=== PATIENT | male | born 2000 | race Two or more races ===

== ENCOUNTER 2020-10-01 16:24 | Outpatient (REF) | payer SELFPAY | END 2020-10-01 16:25 | disposition home or self-care (01) | LOC: HO.LAB 16:24 | PROVIDERS: Visit Provider Internal Medicine | DX: Z20.828 Contact with and (suspected) exposure to other viral communicable diseases (principal) | CPT/HCPCS: C9803; U0003 ==

== ENCOUNTER 2021-02-05 05:50 | Emergency (ER) | payer SELFPAY ==
[2021-02-05 06:03] VITALS: BP 121/64; PULSE 58; RESP 14; TEMP 36.6; O2SAT 97; BMI 20.5
--- NOTE | 2021-02-05 07:24 | ED.ALLEREA ---
HPI - Allergic Reaction General Chief complaint: Allergic Reaction Stated complaint: Hives Time Seen by Provider: 02/05/21 07:24 Source: patient Mode of arrival: ambulatory Limitations: no limitations History of Present Illness HPI narrative: HIves to arms and back. Improved this has been occuring for a month. complaint: hives Onset (ago): month(s) Symptoms: itching Severity: mild Treatment prior to arrival: none Previous Allergic Reaction History: prior ED visit(s) Related Data Previous Rx's Medication Instructions Recorded cetirizine [Zyrtec] 10 mg PO DAILY #30 cap 02/05/21 Allergies Allergy/AdvReac Type Severity Reaction Status Date / Time No Known Allergies Allergy Verified 02/05/21 07:30 Review of Systems Constitutional: Constitutional: Reports no additional constitutional complaints Eyes: Eyes: Reports no additional eye complaints ENT: Denies dizziness Cardiovascular: Cardiovascular: Reports no additional cardiovascular complaints Respiratory: Respiratory: Reports as per HPI Gastrointestinal: Gastrointestinal: Reports no additional gastrointestinal complaints Musculoskeletal: Musculoskeletal: Reports no additional musculoskeletal complaints Integumentary/Breasts: Skin/Breast: Denies rash Neurologic: Reports system reviewed and no additional complaints, except as documented, Denies dizziness and Denies Sensory deficit (Neuro) Psychiatric: Psychiatric: Denies anxiety [facility] Past Medical History Medical History Asthma Social History Social History Advance Directives: No Physical Exam Vital Signs: Vital Signs: Last Vital Signs Temp 98 F 02/05/21 06:03 Pulse 58 02/05/21 06:03 Resp 14 02/05/21 06:03 BP 121/64 02/05/21 06:03 Pulse Ox 97 02/05/21 06:03 Body Mass Index 20.5 Const: General: healthy appearing Nutritional Appearance: average body habitus Orientation/consciousness: oriented to person and patient oriented x3 Limitations: no limitations HENMT: Head: Yes normal to inspection Ears: external ears normal General nose exam: Normal external nose present Mouth: Normal oral and palatal mucosa present and oropharynx normal Throat: Yes posterior oropharynx normal Eyes: General: appearance normal, both eyes and all related structures Neck: Other: supple Neck: Yes normal visual inspection Chest: Chest palpation & inspection: normal inspection of the chest Resp: Auscultation: clear to auscultation bilaterally Cardio: Jugular venous distension: no JVD Rate: regular rate Rhythm: regular rhythm Heart sounds: S1 normal heart sound present and S2 normal heart sound present GI: Inspection: Yes normal to inspection Palpation (GI): Soft to palpation, nontender and No hepatosplenomegaly present Auscultation: normal bowel sounds : General: Yes no CVA tenderness Back/Spine/Pelvis: Back: no CVA tenderness Skin: Other: slight hives to arms and abdomen Neuro: General: oriented to person and patient oriented x3 Cranial nerves: Yes CN's II-XII intact bilaterally Motor exam (neuro): 5/5 motor strength present throughout Sensory Exam: No Sensory deficit (Neuro) Extrem: General: Yes normal to inspection Psych: Appearance: grossly normal Course Course Course Narrative: NO evidence of acute allergic reaction will start zyrtec and dc home with follow up MDM - Allergic Reaction Differential Diagnosis Differential diagnosis: Likely allergic reaction Discharge Plan Discharge Clinical Impression: Urticaria Allergic reaction Qualifiers: Encounter type: initial encounter Qualified Code(s): T78.40XA - Allergy, unspecified, initial encounter Patient Disposition: Home, Self-Care Instructions: Urticaria (ED) Prescriptions: New Zyrtec 10 mg capsule 10 mg PO DAILY Qty: 30 RF: 0 Referrals: Physician,None [Primary Care Provider] - 2 days
== END 2021-02-05 08:16 | disposition home or self-care (01) ==
PROVIDERS: Emergency Provider Emergency Medicine
DX: L50.0 Allergic urticaria (principal); Z79.899 Other long term (current) drug therapy
CPT/HCPCS: 99283

== ENCOUNTER 2021-02-09 21:11 | Emergency (ER) | payer OTHER, SELFPAY ==
[2021-02-09 21:20] VITALS: BP 112/65; PULSE 71; RESP 16; TEMP 37.3; O2SAT 98; BMI 20.5
--- NOTE | 2021-02-09 21:55 | ED.ALLEREA ---
HPI - Allergic Reaction General Chief complaint: Allergic Reaction Stated complaint: HIVES Time Seen by Provider: 02/09/21 21:49 Source: patient Mode of arrival: ambulatory Limitations: no limitations History of Present Illness HPI narrative: Patient comes to emergency room complaining of hives. Patient states for the last month, he has been having intermittent has. Patient states he has this episodes 5 of 7 days per week. They are very itchy. The hives are present in the face, abdomen and chest, back, upper and lower extremities bilaterally. Patient was seen here on February 05 with the same symptoms, prescribed Zyrtec. Patient states that he is compliant with his medication but he still having highs despite being and Zyrtec. Patient states that there is nothing new that might explain the hives, denies any new foods, no new medications or supplements, no new clothes or detergents. Patient denies feeling that his throat is closing, no shortness of breath, no chest pain. This episode started 30 minutes prior to arrival MD complaint: hives Related Data Previous Rx's Medication Instructions Recorded cetirizine [Zyrtec] 10 mg PO DAILY #30 cap 02/05/21 famotidine [Pepcid] 40 mg PO DAILY #4 tab 02/09/21 prednisone 50 mg PO DAILY #4 tab 02/09/21 Allergies Allergy/AdvReac Type Severity Reaction Status Date / Time No Known Allergies Allergy Verified 02/09/21 21:19 Review of Systems Review of Systems: Constitutional : No Weight loss, No Fever, No Chills, No Night Sweats, No Fatigue, No Malaise ENT/Mouth : No Hearing loss, No Ear Pain, No Nasal Congestion, No Sinus Pain, No Hoarseness, No sore throat, No Rhinorrhea, No Swallowing Difficulty Eyes: No Eye Pain, No Swelling, No Redness, No Foreign Body, No Discharge, No Vision Changes Cardiovascular : No Chest Pain, No SOB, No Dyspnea on Exertion, No Orthopnea, No Edema, No Palpitations Respiratory : No Cough, No Sputum, No Wheezing, No Smoke Exposure, No Dyspnea Gastrointestinal : No Nausea, No Vomiting, No Diarrhea, No Constipation, No abdominal Pain, No Hematochezia, No Melena Genitourinary : no irregular bleeding, No Dysuria, No Urinary Frequency, No Hematuria, No Urinary Incontinence, No Urgency, No Flank Pain, No Urinary Flow Changes, No Hesitancy Musculoskeletal : No joint pain, No Myalgias, No Joint Swelling Skin : Complaining of hives Neuro : No Weakness, No Numbness, No Paresthesias, No Loss of Consciousness, No Dizziness, No Headache Psych : No Anxiety/Panic, No Depression, No SI/HI/AH/VH, No Social Issues, Heme/Lymph: No Bruising, No Bleeding,No Lymphadenopathy Endocrine : No Polyuria, No Polydipsia, No Temperature Intolerance [facility] Past Medical History Medical History Asthma Social History Social History Advance Directives: No Advance Directives Information Provided: Yes Physical Exam Vital Signs: Vital Signs: Last Vital Signs Temp 99.2 F 02/09/21 21:20 Pulse 71 02/09/21 21:20 Resp 16 02/09/21 21:20 BP 112/65 02/09/21 21:20 Pulse Ox 98 02/09/21 21:20 Body Mass Index 20.5 Appearance: Alert. Oriented X3. No acute distress. Eyes: Pupils equal, round and reactive to light. ENT: Pharynx normal. Neck: Normal inspection. Neck supple. No lymph nodes noted. No crepitus CVS: Normal heart rate and rhythm. Pulses normal. Normal S1 and S2 Respiratory: No respiratory distress. Breath sounds normal. No Wheezing. No rales Abdomen: Soft and nontender. No rigidity. No distention. good BS x4 Skin: Hives and chest, abdomen, back, upper and lower extremities Extremities: No lower extremity edema. No Lacerations. No Rash Neuro: Oriented X 3. No motor deficit. No sensory deficit. Moving all extermities. No slurred speech. Course Course Course Narrative: After IV treatment, the hives completely resolved. I discussed with the patient that he needs to be referred to an construction person for a skin scratch test to find out if he is allergic to. At this time, patient is asymptomatic. Discharge Plan Discharge Clinical Impression: Urticaria Patient Disposition: Home, Self-Care Instructions: Urticaria (ED) Additional Instructions: Continue taking Zyrtec. Please follow-up with her primary care physician as she may need to be referred to an construction person for a skin scratch test. If you have any worsening or new symptoms, please return to the emergency room or call 911 Prescriptions: New prednisone 50 mg tablet 50 mg PO DAILY Qty: 4 RF: 0 famotidine [Pepcid] 40 mg tablet 40 mg PO DAILY Qty: 4 RF: 0 No Action Zyrtec 10 mg capsule 10 mg PO DAILY Qty: 30 RF: 0
[2021-02-09] MEDS: methylPREDNISolone Sod Succ 125 MG/2 ML VIAL IVPUSH (22:23)
[2021-02-09] MEDS: diphenhydrAMINE HCL 50 MG/ML VIAL IVPUSH (22:23)
[2021-02-09] MEDS: Famotidine/PF 20 MG/2 ML VIAL IVPUSH (22:23)
== END 2021-02-09 23:20 | disposition home or self-care (01) ==
PROVIDERS: Emergency Provider Emergency Medicine
DX: L50.9 Urticaria, unspecified (principal)
CPT/HCPCS: 96374; 96375; 99283; 99284; J1200; J2930

== ENCOUNTER 2021-07-20 22:34 | Emergency (ER) | payer OTHER, SELFPAY ==
[2021-07-21 00:50] LABS: IDNOW Serial# 9DD0AD1C; Strep A Nucleic Acid Positive (Negative)
[2021-07-21 01:06] VITALS: BP 124/68; PULSE 54; RESP 18; TEMP 36.6; O2SAT 99; BMI 21.2
--- NOTE | 2021-07-21 04:13 | ED_ITS ---
HPI - General Adult General Chief complaint: General Medical Stated complaint: Sore throat/Headache Time Seen by Provider: 07/21/21 04:03 Source: patient Mode of arrival: ambulatory Limitations: no limitations History of Present Illness HPI narrative: 20-year-old male who presents emergency department for evaluation of sore throat and flu-like illness for approximately 1 week. Patient states that he has a sore throat which is constant, the pain is a sharp pain which is worse with swallowing. He has also had rhinorrhea. He denied cough, chest pain, shortness of breath or dyspnea on exertion. He denied fever or chills. He denied myalgias or arthralgias. Patient states that he had a COVID-19 infection in September of 2020. He has not been vaccinated for COVID-19. He was seen at an urgent care clinic today and states that he had a negative COVID-19 test. Related Data Previous Rx's Medication Instructions Recorded cetirizine 10 mg capsule (Zyrtec) 10 mg PO DAILY #30 cap 02/05/21 famotidine 40 mg tablet (Pepcid) 40 mg PO DAILY #4 tab 02/09/21 prednisone 50 mg tablet 50 mg PO DAILY #4 tab 02/09/21 penicillin V potassium 500 mg 500 mg PO TID 10 Days #30 tab 07/21/21 tablet Allergies Allergy/AdvReac Type Severity Reaction Status Date / Time No Known Allergies Allergy Verified 02/09/21 21:19 Review of Systems Review of Systems: Yes all other systems are reviewed and are negative ON LICENSE OF [facility] Past Medical History ON LICENSE OF [facility] Narrative: Past medical history: Asthma, COVID-19 infection in September 2020. Past surgical history: None. Social history: The patient denies tobacco, alcohol and drug use. Medical History Asthma Social History Social History Advance Directives: No Physical Exam Vital Signs: Vital Signs: Last Vital Signs Temp 97.8 F 07/21/21 01:06 Pulse 54 07/21/21 01:06 Resp 18 07/21/21 01:06 BP 124/68 07/21/21 01:06 Pulse Ox 99 07/21/21 01:06 Body Mass Index 21.2 Const: General: cooperative and no acute distress Orientation/conscious ness: oriented to person and oriented to place Limitations: no limitations HENMT: Head: Yes normal to inspection, Yes normocephalic and Yes atraumatic Ears: external ears normal General nose exam: Normal external nose present Face and sinus: Yes normal facial exam Mouth: Normal oral and palatal mucosa present Throat: Yes tonsils normal, Yes uvula midline and Yes posterior oropharynx abnormal (Bilateral erythema with exudate) Eyes: General: appearance normal, both eyes and all related structures Pup ils: Equal, round and reactive pupils present Neck: Neck: Yes normal visual inspection, Yes no lymphadenopathy, Yes trachea midline and Yes supple Chest: Chest palpation & inspection: normal inspection of the chest and normal palpation of entire chest wall Resp: Effort & Inspection: normal respiratory effort and able to speak in complete sentences Auscultation: clear to auscultation bilaterally Cardio: Rate: regular rate Rhythm: regular rhythm Heart sounds: S1 normal heart sound present, S2 normal heart sound present and no murmurs GI: Inspection: Yes normal to inspection Palpation (GI): Soft to palpation, nontender and no guarding Auscultation: normal bowel sounds : General: Yes no CVA tenderness Back/Spine/Pelvis: Back: no CVA tenderness Skin: General skin exam: no rashes or lesions noted Neuro: General: oriented to person and oriented to place Cranial nerves: Yes CN's II-XII intact bilaterally and Yes Equal, round and reactive pupils present Cognition (Neuro): normal cognition Motor exam (neuro): 5/5 motor strength present throughout Extrem: General: Yes normal to inspection Psych: Appearance: grossly normal Speech and movement: Normal speech and movement present Affect: normal affect Attitude: cooperative Thought process: Normal thought process present Thought content: Normal thought content present Course Course Course Narrative: 20-year-old male who presents to the emergency department for evaluation of sore throat x1 week. Vital signs were normal. Throat exam did reveal posterior erythema with exudates. Patient's rapid strep test was positive. Patient was given penicillin 500 mg orally and ibuprofen 600 mg orally for his pain. He was started on penicillin 500 mg 3 times a day for 10 days. He was discharged home with verbal and printed instructions advised return to the emergency department if his symptoms get worse or if he develops any new symptoms that were concerning to him. Medical Decision Making Lab Data Labs: Lab Results 07/21/21 07/21/21 Range/Units 00:34 00:34 COVID-19 (JORGE) Cancelled COVID-19 Clin Com Cancelled S. pyogenes GrpA DAISY Positive A (Negative) Discharge Plan Discharge Clinical Impression: Acute streptococcal pharyngitis Patient Disposition: Home, Self-Care Instructions: Strep Throat (ED) Additional Instructions: Your rapid strep throat test was positive for strep throat. Take penicillin 500 mg pills, 1 pill 3 times a day (every 6 hours while you are awake) for 10 days. It is important that you finish the 10 day course of this medication. Take ibuprofen 200 mg pills, 3 pills every 6 hours as needed for pain. Take Tylenol (acetaminophen) 500 mg pills, 2 pills every 4 to 6 hours as needed for pain. Follow-up with your doctor in 2 days. Please return to the emergency department if your symptoms get worse or if you develop any symptoms that are concerning to you. Prescriptions: New penicillin V potassium 500 mg tablet 500 mg PO TID 10 Days Qty: 30 RF: 0 No Action Zyrtec 10 mg capsule 10 mg PO DAILY Qty: 30 RF: 0 prednisone 50 mg tablet 50 mg PO DAILY Qty: 4 RF: 0 famotidine [Pepcid] 40 mg tablet 40 mg PO DAILY Qty: 4 RF: 0
[2021-07-21] MEDS: Ibuprofen 600 MG TABLET PO (04:37)
[2021-07-21] MEDS: Penicillin V Potassium 250 MG TABLET 500 MG PO (04:38)
== END 2021-07-21 04:37 | disposition home or self-care (01) ==
PROVIDERS: Emergency Provider Emergency Medicine Emergency Medical Services
DX: J02.0 Streptococcal pharyngitis (principal)
CPT/HCPCS: 36415; 87635; 87651; 99283

== ENCOUNTER 2022-07-13 21:38 | Emergency (ER) | payer OTHER, SELFPAY ==
--- NOTE | ~2022-07-13 | XR_ITS ---
EXAMINATION: 1. LEFT FOOT. 2. LEFT ANKLE. CLINICAL INFORMATION: Pain. Trauma. COMPARISON: None TECHNIQUE: 1. Left foot. 3 views 2. Left ankle. 3 views FINDINGS: 1. Left foot. No fracture. No dislocation. Bone and joint are normal. 2. Left ankle. No fracture. No dislocation. Ankle mortise is congruent. No soft tissue abnormality. XR/XR ankle LT 2V IMPRESSION: 1. Left foot. Normal left foot. 2. Left ankle. Normal left ankle.
--- NOTE | ~2022-07-13 | XR_ITS ---
EXAMINATION: 1. LEFT FOOT. 2. LEFT ANKLE. CLINICAL INFORMATION: Pain. Trauma. COMPARISON: None TECHNIQUE: 1. Left foot. 3 views 2. Left ankle. 3 views FINDINGS: 1. Left foot. No fracture. No dislocation. Bone and joint are normal. 2. Left ankle. No fracture. No dislocation. Ankle mortise is congruent. No soft tissue abnormality. XR/XR foot LT 2V IMPRESSION: 1. Left foot. Normal left foot. 2. Left ankle. Normal left ankle.
[2022-07-13 22:00] VITALS: BP 129/76; PULSE 76; RESP 16; TEMP 36.7; O2SAT 96; BMI 24.0
[2022-07-13] MEDS: Ibuprofen 600 MG TABLET PO (22:05)
--- NOTE | 2022-07-14 00:16 | ED.LOWEXIN ---
HPI - Extremity Injury (Lower) General Chief Complaint: Extremity Injury, Lower Stated Complaint: L ankle sprain at work Time Seen by Provider: 07/13/22 23:31 Source: patient Limitations: no limitations History of Present Illness HPI Narrative: Patient presents emergency department for evaluation of left ankle pain. 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 Has pain to the left lateral ankle and midfoot with localized swelling. Pain is made worse with ambulation and weight-bearing. Denies numbness or tingling to the foot. Denies any prior injury to this foot. Related Data Previous Rx's Medication Instructions Recorded cetirizine 10 mg capsule (Zyrtec) 10 mg PO DAILY #30 caps 02/05/21 famotidine 40 mg tablet (Pepcid) 40 mg PO DAILY #4 tabs 02/09/21 prednisone 50 mg tablet 50 mg PO DAILY #4 tabs 02/09/21 penicillin V potassium 500 mg 500 mg PO TID 10 days #30 tabs 07/21/21 tablet Allergies Allergy/AdvReac Type Severity Reaction Status Date / Time shrimp Allergy Anaphylaxis Verified 07/13/22 22:00 Review of Systems Review of Systems: Musculoskeletal: Positive left ankle and foot pain as noted in HPI Yes all other systems are reviewed and are negative [facility] Past Medical History Attestation statement: The following information was validated with the patient. Source: old records reviewed Medical History Asthma Social History Social History Advance Directives: No Advance Directives Information Provided: Yes Physical Exam Vital Signs: Vital Signs: Last Vital Signs Temp 98.0 F 07/13/22 22:00 Pulse 76 07/13/22 22:00 Resp 16 07/13/22 22:00 BP 129/76 07/13/22 22:00 Pulse Ox 96 07/13/22 22:00 O2 Del Method 07/13/22 22:00 BMI result Body Mass Index 24.0 Vital signs have been reviewed as normal and appeared to be correct. Blood pressure normal.? Heart rate normal.? Respiration rate normal. Temperature normal.? Oxygen saturation normal. Appearance: Alert.?Oriented to person, place and time. No acute distress.?Normal affect. Eyes: Pupils equal, round and reactive to light.? ENT: Pharynx normal.?? Neck: Normal inspection.? Neck supple.?? CVS: Heart sounds normal. Normal heart rate and rhythm.? Pulses normal.?? Respiratory: No respiratory distress.? Lung sounds clear to auscultation bilaterally?? Abdomen: Soft and non-tender. Normoactive bowel sounds. ?? Skin: Skin warm and dry.? Normal skin color.? Extremities: No lower extremity edema.? Left lateral malleolus swelling, tenderness upon palpation to the lateral midfoot and malleolus. 2+ DP/PT pulse bilaterally. Sensation is intact. No obvious deformity Neuro: Moves all extremities spontaneously. Sensation intact bilaterally. CN II-XII intact. No focal neuro deficits. Ambulates with normal steady gait. Course Course Course Narrative: Patient is a 21-year-old male with no significant past medical history presents emergency department for evaluation of traumatic left ankle/foot pain. XR obtained reveals no acute fracture dislocation to the ankle or foot. Lateral malleolus swelling with point tenderness upon palpation. Neurovascularly intact distally. Physical exam consistent with a sprain of the ankle. Discussed good care for rest, ice, compression, elevation, acetaminophen/ibuprofen as needed for pain, crutches and weight-bearing as tolerated. Advised outpatient follow-up with primary care provider, alternatively may contact [facility], and speak with his boss as this was a work related injury regarding return to work. All questions were answered, patient was discharged home in stable condition. MDM - Extremity Injury (Lower) Medical Records Attestation: I reviewed the patient's medical records. Imaging Data XR ankle/foot: Radiologist's impression: XR/XR ankle LT 2V IMPRESSION: 1. Left foot. Normal left foot. 2. Left ankle. Normal left ankle.? Discharge Plan Discharge Clinical Impression: Ankle sprain Qualifiers: Encounter type: initial encounter Laterality: left Patient Disposition: Home, Self-Care Instructions: Ankle Sprain (ED), R.I.C.E. Treatment (ED) Additional Instructions: X-ray does not show any fracture or dislocation. Your pain is due to a sprain of the ankle. Be sure to rest, apply ice to the area for 10-15 minutes 3-4 times daily, use Filemon bandage for compression, elevate your leg at all times when possible. Use crutches while walking. You can take ibuprofen 200 mg, 3 tablets (600mg) every 6-8 hours as needed for pain, in addition to Tylenol 500 mg, 2 tablets (1,000mg) every 4-6 hours as needed for pain, but not to exceed 3 doses daily (3,000mg).? Ankle sprains can improve over a few days, but can take weeks to heal as well. Please contact your primary care provider to arrange for follow-up as needed, additional you will need to contact your job as injury occurred while working, and they may request follow-up at a certain facility before returning to work. Prescriptions: No Action Zyrtec 10 mg capsule 10 mg PO DAILY Qty: 30 0RF prednisone 50 mg tablet 50 mg PO DAILY Qty: 4 0RF famotidine [Pepcid] 40 mg tablet 40 mg PO DAILY Qty: 4 0RF penicillin V potassium 500 mg tablet 500 mg PO TID 10 Days Qty: 30 0RF Referrals: [facility] [Provider Group]
== END 2022-07-14 01:09 | disposition home or self-care (01) ==
PROVIDERS: Emergency Provider Emergency Medicine Emergency Medical Services
DX: S93.402A Sprain of unspecified ligament of left ankle, initial encounter (principal); M25.572 Pain in left ankle and joints of left foot; Y33.XXXA Other specified events, undetermined intent, initial encounter; Y93.89 Activity, other specified; Y92.9 Unspecified place or not applicable; Y99.0 Civilian activity done for income or pay; Z79.899 Other long term (current) drug therapy
CPT/HCPCS: 73600; 73620; 99283

== ENCOUNTER 2022-11-01 21:58 | Emergency (ER) | payer SELFPAY ==
[2022-11-01 22:07] VITALS: BP 123/79; PULSE 86; RESP 16; TEMP 36.6; O2SAT 96; BMI 21.6
[2022-11-01 22:36] LABS: IDNOW Serial# 55D5AD1C
[2022-11-01 22:37] LABS: COVID-19 Test Negative (Negative); IDNOW Serial# 6674DD1D; Influenza A Negative (Negative); Influenza B2 Negative (Negative)
[2022-11-01 22:38] LABS: IDNOW Serial# 08D9AD1C; Strep A Nucleic Acid Negative (Negative)
--- NOTE | 2022-11-01 22:56 | ED_ITS ---
HPI - General Adult General Chief complaint: Upper Respiratory Symptoms Stated complaint: swollen throat cant swallow Time Seen by Provider: 11/01/22 22:22 Source: patient Mode of arrival: ambulatory Limitations: no limitations History of Present Illness HPI narrative: 22-year-old male history of asthma presents with sore throat, dry cough, rhinorrhea since this morning. Patient tells me he is coming in because he is concerned he may have strep throat, he tells me he did the symptoms he had last time when he had strep throat, he tells me his throat is burning and hurts to swallow, and hurts to talk. Patient tells me the cough is dry, intermittent nature. Reports an intermittent runny nose. Denies fevers, chills, chest pain, shortness of breath, headache, vision changes, dizziness, ear pain, recent sick contacts. Related Data Previous Rx's Medication Instructions Recorded cetirizine 10 mg capsule (Zyrtec) 10 mg PO DAILY #30 caps 02/05/21 famotidine 40 mg tablet (Pepcid) 40 mg PO DAILY #4 tabs 02/09/21 prednisone 50 mg tablet 50 mg PO DAILY #4 tabs 02/09/21 penicillin V potassium 500 mg 500 mg PO TID 10 days #30 tabs 07/21/21 tablet Magic Mouthwash 5 ml PO TID #240 mL 11/01/22 Diphen/Lido/Antacid 1:1:1 240 mL suspension amoxicillin 500 mg capsule 500 mg PO BID 7 days #14 caps 11/01/22 Allergies Allergy/AdvReac Type Severity Reaction Status Date / Time shrimp Allergy Anaphylaxis Verified 07/13/22 22:00 Review of Systems Review of Systems: Constitutional : No Weight loss, No Fever, No Chills, No Fatigue, No Malaise ENT/Mouth : + sore throat, No Rhinorrhea, + Sneezing Eyes: No Eye Pain, No Swelling, No Redness Cardiovascular : No Chest Pain, No SOB, No Dyspnea on Exertion, No Orthopnea, No Edema, No Palpitations Respiratory : + Cough, No Sputum, No Wheezing Gastrointestinal : No Nausea, No Vomiting, No Diarrhea, No Constipation, No abdominal Pain, No Hematochezia, No Melena Genitourinary : No Dysuria, No Urinary Frequency, No Hematuria, Musculoskeletal : No joint pain, No Myalgias, No Joint Swelling Skin : No Skin Lesions, No rash Neuro : No Weakness, No Numbness, No Dizziness, No Headache Psych : No Anxiety/Panic, No Depression All other systems reviewed and are negative Yes all other systems are reviewed and are negative FOR[facility]LY [facility] Past Medical History Attestation statement: The following information was validated with the patient. Source: old records reviewed and nursing notes reviewed Medical History Asthma Social History Social History Advance Directives: No Advance Directives Information Provided: No Physical Exam ED Vital Signs: Vital Signs - 24 hr 11/01/22 22:07 Temperature 98 F Pulse Rate 86 Respiratory Rate 16 Blood Pressure 123/79 Pulse Oximetry 96 Oxygen Delivery Method Room Air BMI result Body Mass Index 21.6 vss Appearance: Alert.? Oriented X3.? No acute distress.? Patient speaking in full sentences controlling secretions well. Head: Normocephalic, atraumatic, no step-offs or deformities Eyes: Pupils equal, round and reactive to light.? ENT: Pharynx normal.? Uvula midline. No signs of abscess or exudates to the pharynx. No pain with manipulation of external ears bilaterally. No mastoid tenderness. Neck: Normal inspection.? Neck supple.? No palpable lymphadenopathy. CVS: Normal heart rate and rhythm.? Pulses normal.? Respiratory: No respiratory distress.? Breath sounds normal.? Abdomen: Soft and nontender.? Skin: Skin warm and dry.? Normal skin color.? Normal skin turgor.? Extremities: No lower extremity edema.? No calf ttp. 5/5 strength to bilateral upper and lower extremities Neuro: Oriented X 3.? No motor deficit.? No sensory deficit. CN 2-12 intact Course Reevaluation(s) Reevaluation #1: COVID, influenza, strep negative. Starr pending. Time: 23:00 Reevaluation #2: Starr negative. At this time patient will be discharged, patient tells me this feels exactly like the time they had strep throat, explained to him because symptoms came on today it is hard to know if this is strep throat or not, he is requesting antibiotics, amoxicillin sent to his pharmacy to cover for strep. Tells me last time he had it rapidly progressed therefore antibiotics will be sent. Educated patient on diagnosis and treatment plan, answered all question, patient verbalizes understanding. At this time patient will be discharged home, advised to return with new or worsening symptoms. Educated on worrisome signs and symptoms and when to return. At this time I feel comfortable discharge home. Time: 00:04 Medications Administered Discontinued Medications Generic Name Dose Route Start Last Admin Trade Name Grace PRN Reason Stop Dose Admin Amoxicillin 500 mg 11/01/22 23:52 11/01/22 23:59 Amoxicillin 500 Mg Capsule PO 11/01/22 23:53 500 mg ONCE ONE Administration Lidocaine HCl 15 ml 11/01/22 22:53 11/01/22 23:11 Lidocaine Hcl Viscous 2 % 15 Ml Solution MUCOUS MEM 11/01/22 22:54 15 ml ONCE ONE Administration Medical Decision Making Medical Decision Making [facility] Narrative: 2249 22-year-old male presents with sore throat, cough and sneezing since this morning. Main concern is sore throat. Tells me this feels like the time that he had strep. Physical exam with an erythematous posterior pharynx however no abscess or exudates. Patient well appearing, no signs of acute distress no signs of respiratory distress. Vital signs stable Likely viral in nature. Will rule out bacterial for pharyngitis, mononucleosis. I do not suspect peritonsillar abscess, epiglottitis. No signs of acute respiratory distress, PE ( PERC -) , pneumonia. Plan at this time viral testing. Differential Diagnosis Differential Diagnoses: The differential diagnosis associated with the prese ntation includes Likely viral in nature. Will rule out bacterial for pharyngitis, mononucleosis. I do not suspect peritonsillar abscess, epiglottitis. No signs of acute respiratory distress, PE ( PERC -) , pneumonia. Admission/Observation Consideration of admission/observation: Escalation of care including admission/observation considered Unlikely Lab Data [facility] Lab Attestation statement: I reviewed the patient's lab results. Labs: Lab Results 11/01/22 11/01/22 11/01/22 Range/Units 22:12 22:12 22:12 COVID-19 (JORGE) Negative (Negative) COVID-19 Clin Com See Note Monoscreen (Negative) Influenza Type A (DAISY) Negative (Negative) Influenza Type B (DAISY) Negative (Negative) Influenza A & B Note See Note S. pyogenes GrpA DAISY Negative (Negative) 11/01/22 Range/Units 23:10 COVID-19 (JORGE) (Negative) COVID-19 Clin Com Monoscreen Negative (Negative) Influenza Type A (DAISY) (Negative) Influenza Type B (DAISY) (Negative) Influenza A & B Note S. pyogenes GrpA DAISY (Negative) Core Measures AMI core measures followed: Yes Measure exclusions: not indicated Discharge Plan Discharge Clinical Impression: Pharyngitis Patient Disposition: Home, Self-Care Instructions: Pharyngitis (ED) Additional Instructions: Take your medications as prescribed. If you were prescribed antibiotics today, it is important that you take your medication to their entirety, do not skip any doses, do not finish them early. Follow-up with your primary care provider this week. Return to the emergency department with new or worsening symptoms. Such as fevers, chills, chest pain, shortness of breath, nausea, vomiting, dizziness, headache, vision changes, lethargy, inability to control secretions, worsening pain, changes in voice In case of emergency call 911 You tested negative for flu, COVID, strep. Prescriptions: New amoxicillin 500 mg capsule 500 mg PO BID 7 Days Qty: 14 0RF Magic Mouthwash Diphen/Lido/Antacid 1:1:1 240 mL suspension 5 ml PO TID Qty: 240 0RF Rx Instructions: Lidocaine Viscous 2 % 80mL; diphenhydramine 12.5 mg/5 mL 80mL; aluminum-mag hydrox-simeth [id number]/5mL 80mL Swish and spit, do not swallow No Action Zyrtec 10 mg capsule 10 mg PO DAILY Qty: 30 0RF prednisone 50 mg tablet 50 mg PO DAILY Qty: 4 0RF famotidine [Pepcid] 40 mg tablet 40 mg PO DAILY Qty: 4 0RF penicillin V potassium 500 mg tablet 500 mg PO TID 10 Days Qty: 30 0RF Referrals: Physician,None [Primary Care Provider] - 2 days Stand Alone Forms: Work/School Release Interventions: ED Discharge Assessment Last Done: 11/02/22 00:01 Discharge Date/Time: 11/02/22 00:01
[2022-11-01] MEDS: Lidocaine HCl Viscous 2 % 15 ML SOLUTION MUCOUS MEM (23:11)
[2022-11-01 23:35] LABS: Monotest Negative (Negative)
[2022-11-01] MEDS: Amoxicillin 500 MG CAPSULE PO (23:59)
== END 2022-11-02 00:01 | disposition home or self-care (01) ==
PROVIDERS: Physician Assistant; Emergency Provider Internal Medicine
DX: J02.9 Acute pharyngitis, unspecified (principal); Z20.822 Contact with and (suspected) exposure to COVID-19; J45.909 Unspecified asthma, uncomplicated
CPT/HCPCS: 36415; 86308; 87502; 87635; 87651; 99282; 99283

== ENCOUNTER 2023-05-08 00:37 | Emergency (ER) | payer MEDICAID, SELFPAY ==
--- NOTE | ~2023-05-08 | XR_ITS ---
EXAMINATION: XR FOOT, LEFT CLINICAL INFORMATION: Fall COMPARISON: 07/13/2022 TECHNIQUE: 3 views of the left foot. FINDINGS: Negative for acute fracture or dislocation. XR/XR foot LT 2V IMPRESSION: No fracture or dislocation left foot.
[2023-05-08 00:43] VITALS: BP 115/75; PULSE 54; RESP 18; TEMP 36.1; O2SAT 99; BMI 20.8
[2023-05-08 00:58] VITALS: BP 132/93; PULSE 60; RESP 16; O2SAT 99
--- NOTE | 2023-05-08 00:59 | ED.LOWEXIN ---
HPI - Extremity Injury (Lower) General Chief Complaint: Extremity Injury, Lower Stated Complaint: left foot inj Time Seen by Provider: 05/08/23 00:56 Source: patient Mode of arrival: ambulatory Limitations: no limitations History of Present Illness HPI Narrative: 22 yo male here with left foot pain after a trip and fall with inversion injury one week ago. Continued pain with WB. No weakness, numbness,tingling of the extremity Related Data Previous Rx's Medication Instructions Recorded cetirizine 10 mg capsule (Zyrtec) 10 mg PO DAILY #30 caps 02/05/21 famotidine 40 mg tablet (Pepcid) 40 mg PO DAILY #4 tabs 02/09/21 prednisone 50 mg tablet 50 mg PO DAILY #4 tabs 02/09/21 penicillin V potassium 500 mg 500 mg PO TID 10 days #30 tabs 07/21/21 tablet Magic Mouthwash 5 ml PO TID #240 mL 11/01/22 Diphen/Lido/Antacid 1:1:1 240 mL suspension amoxicillin 500 mg capsule 500 mg PO BID 7 days #14 caps 11/01/22 Allergies Allergy/AdvReac Type Severity Reaction Status Date / Time shrimp Allergy Anaphylaxis Verified 07/13/22 22:00 Review of Systems Review of Systems: Yes all other systems are reviewed and are negative Constitutional: Constitutional: Reports no additional constitutional complaints, Denies body ache(s), Denies chills, Denies fever(s), Denies headache(s) and Denies weakness Eyes: Eyes: Reports no additional eye complaints and Denies change in vision ENT: Reports system reviewed and no additional complaints, except as documented, Denies dizziness, Denies headache(s), Denies nasal congestion, Denies nasal discharge and Denies neck pain Cardiovascular: Cardiovascular: Reports no additional cardiovascular complaints, Denies chest pain, Denies leg edema and Denies dyspnea Respiratory: Respiratory: Reports no additional respiratory complaints, Denies cough and Denies dyspnea Gastrointestinal: Gastrointestinal: Reports no additional gastrointestinal complaints, Denies abdominal pain, Denies diarrhea, Denies nausea and Denies vomiting Genitourinary: Genitourinary: Denies urinary incontinence Musculoskeletal: Musculoskeletal: Reports no additional musculoskeletal complaints, Denies back pain, Reports arthralgias, Reports joint swelling, Denies neck pain, Denies numbness and Denies tingling Integumentary/Breasts: Skin/Breast: Reports system reviewed and no additional complaints, except as docu and Denies rash Neurologic: Reports system reviewed and no additional complaints, except as documented, Denies Abnormal speech present, Denies dizziness, Denies headache(s), Denies numbness, Denies tingling and Denies weakness PMFSH Past Medical History Attestation statement: The following information was validated with the patient. Source: old records reviewed and nursing notes reviewed Medical History Asthma Social History Social History Alcohol intake: never Smoked in Last 30 Days: No Use of substances other than those prescribed or required for medical reasons: No Advance Directives: No Advance Directives Information Provided: No Physical Exam Vital Signs: Vital Signs: Last Vital Signs Temp 97 F 05/08/23 00:43 Pulse 60 05/08/23 00:58 Resp 16 05/08/23 00:58 BP 132/93 H 05/08/23 00:58 Pulse Ox 99 05/08/23 00:58 O2 Del Method Room Air 05/08/23 00:58 BMI result Body Mass Index 20.8 Const: General: cooperative, healthy appearing, comfortable and no acute distress Orientation/consciousness: patient oriented x3 Limitations: no limitations HEENT: Head: Yes normal to inspection Ears: hearing grossly normal bilaterally General nose exam: Normal external nose present Face and sinus: Yes normal facial exam Mouth: Normal oral and palatal mucosa present Throat: Yes posterior oropharynx normal Eyes: General: appearance normal, both eyes and all related structures Pupils: Equal, round and reactive pupils present Neck: Neck: Yes normal visual inspection Chest: Chest palpation & inspection: normal inspection of the chest Resp: Effort & Inspection: normal respiratory effort Auscultation: clear to auscultation bilaterally Cardio: Rate: regular rate Rhythm: regular rhythm Peripheral pulses: Peripheral pulses 2+ throughout GI: Inspection: Yes normal to inspection Palpation (GI): Soft to palpation and nontender Auscultation: normal bowel sounds Back/Spine/Pelvis: Thoracic/Lumbar Spine: thoracic and lumbar spine normal to inspection Skin: General skin exam: no rashes or lesions noted Neuro: General: patient oriented x3, no focal motor deficits and normal sensation to monofilament Cranial nerves: Yes Equal, round and reactive pupils present Cognition (Neuro): normal cognition Speech: No Abnormal speech present Gait exam (Neuro): Normal gait present Motor exam (neuro): 5/5 motor strength present throughout Extrem: Other: There is mild swelling, ecchymosis and TTP over the left dorsal foot and 5th MTP 2+ DP and PT pulses Normal sensation FROM of foot. No pain on palpation over the ankle, negative uribe test, no posterior ankle or calf pain Course Course Course Narrative: x-ray shows no acute finding. Likely sprain. Reviewed rice. Reviewed worrisome signs and symptoms of when to return to the emergency room. Comfortable plan for discharge home. Medical Decision Making Medical Decision Making [facility] Narrative: 22 yo male here with left foot pain after trip and fall with inversion injury one week ago with continued pain especially with WB. On exam patient with ecchymosis/swelling/TTP to left foot. Will check x-rays. Differential Diagnosis Differential Diagnoses: The differential diagnosis associated with the presentation includes fracture, sprain, strain Low concern for vascular injury or dislocation Independent Interpretation I performed an independent interpretation of an: Plain X-Ray Interpretation: I independetelyi reviewed the x-ray and agree with the radiology report Radiology Impression Discussion of test interpretation with radiology: I have reviewed the radiologist's reading. Radiologist Impression: Launch?Image [place] [id number] XRay Report Signed Patient: Hu Langley MR#: [id number] : 2000 Acct:[id number] Age/Sex: 22 / M ADM Date: 05/08/23 Loc: HO.ED Attending Dr: Ordering Physician: Uvaldo Rosa MD Date of Service: 05/08/23 Procedure(s): XR foot LT 2V Accession Number(s): [id number] cc: Uvaldo Rosa MD~ EXAMINATION: XR FOOT, LEFT CLINICAL INFORMATION: Fall? COMPARISON: 07/13/2022? TECHNIQUE: 3 views of the left foot. FINDINGS: Negative for acute fracture or dislocation.? XR/XR foot LT 2V IMPRESSION: No fracture or dislocation left foot. Procedures Orthopedic Splinting/Casting Injury #1: Side: right Lower Extremity Injury Location: ankle Lower Extremity Immobilizer: Filemon wrap Other Orthopedic Equipment: crutches Discharge Plan Discharge Clinical Impression: Foot sprain Patient Disposition: Home, Self-Care Instructions: Crutch Instructions (ED), How to Use an Elastic Bandage (ED), Foot Sprain (ED), Cold Compress or Soak (ED) Additional Instructions: Rest, ice, elevation Use the filemon wrap and crutches for ambulation Motrin or tylenol for pain as needed Prescriptions: No Action Zyrtec 10 mg capsule 10 mg PO DAILY Qty: 30 0RF prednisone 50 mg tablet 50 mg PO DAILY Qty: 4 0RF famotidine [Pepcid] 40 mg tablet 40 mg PO DAILY Qty: 4 0RF penicillin V potassium 500 mg tablet 500 mg PO TID 10 Days Qty: 30 0RF amoxicillin 500 mg capsule 500 mg PO BID 7 Days Qty: 14 0RF Magic Mouthwash Diphen/Lido/Antacid 1:1:1 240 mL suspension 5 ml PO TID Qty: 240 0RF Rx Instructions: Lidocaine Viscous 2 % 80mL; diphenhydramine 12.5 mg/5 mL 80mL; aluminum-mag hydrox-simeth [id number]/5mL 80mL Swish and spit, do not swallow Referrals: Physician,Unknown J [Primary Care Provider] - 1 week Stand Alone Forms: Work/School Release
== END 2023-05-08 01:25 | disposition home or self-care (01) ==
LOC: HO.ED 01:09
PROVIDERS: Emergency Provider Emergency Medicine Emergency Medical Services
DX: S93.601A Unspecified sprain of right foot, initial encounter (principal); X58.XXXA Exposure to other specified factors, initial encounter; Y93.9 Activity, unspecified; Y92.9 Unspecified place or not applicable; Y99.9 Unspecified external cause status; Z79.899 Other long term (current) drug therapy
CPT/HCPCS: 29515; 73620; 99284

== ENCOUNTER 2023-08-12 22:09 | Emergency (ER) | payer MEDICAID, SELFPAY ==
--- NOTE | ~2023-08-12 | XR_ITS ---
EXAMINATION: XR WRIST, LEFT CLINICAL INFORMATION: Pain. COMPARISON: None available. TECHNIQUE: Four views of the left wrist. FINDINGS: The bones and soft tissues are normal. No fracture. Alignment is anatomic with normal joint spaces. No erosions or abnormal soft tissue calcifications. XR/XR wrist LT min 3V IMPRESSION: Normal left wrist.
[2023-08-12 22:19] VITALS: BP 129/67; PULSE 91; RESP 18; TEMP 36.7; O2SAT 97; BMI 22.0
--- NOTE | 2023-08-12 22:52 | ED.EXTPRO ---
HPI - Extremity Problem General Chief complaint: Extremity Injury, Upper Stated complaint: squished arm in door, swollen Time Seen by Provider: 08/12/23 22:50 Source: patient Mode of arrival: ambulatory Limitations: no limitations History of Present Illness HPI Narrative: Patient is a 22 year old assigned male at with no reported medical history presenting to the emergency department today with left wrist pain. Patient states that a door slammed against his wrist and another surface. Patient denies any dizziness, lightheadedness, abdominal pain, nausea, vomiting, fever, chills, blurry vision, double vision, loss of vision, chest pain, difficulty breathing, shortness of breath, back pain, night sweats, pain with urination, increased urinary frequency, increased urinary urgency, blood in his urine or stool, syncope or a near syncopal episode, recent trauma or falls, bowel incontinence, bladder incontinence, bowel retention, bladder retention, or any other complaints at this time. MD Complaint: extremity pain Onset (ago): hour(s) Pain Consistency: constant Location: left and upper extremity Severity scale (1-10): 3 Quality: aching and dull Radiation: none Relieving factors: nothing Exacerbating factors: nothing Associated symptoms: denies other symptoms Related Data Previous Rx's Medication Instructions Recorded cetirizine 10 mg capsule (Zyrtec) 10 mg PO DAILY #30 caps 02/05/21 famotidine 40 mg tablet (Pepcid) 40 mg PO DAILY #4 tabs 02/09/21 prednisone 50 mg tablet 50 mg PO DAILY #4 tabs 02/09/21 penicillin V potassium 500 mg 500 mg PO TID 10 days #30 tabs 07/21/21 tablet Magic Mouthwash 5 ml PO TID #240 mL 11/01/22 Diphen/Lido/Antacid 1:1:1 240 mL suspension amoxicillin 500 mg capsule 500 mg PO BID 7 days #14 caps 11/01/22 Allergies Allergy/AdvReac Type Severity Reaction Status Date / Time shrimp Allergy Anaphylaxis Verified 07/13/22 22:00 Review of Systems Constitutional: Constitutional: Reports no additional constitutional complaints, Denies chills, Denies fever(s) and Denies night sweats Eyes: Eyes: Reports no additional eye complaints, Denies blurry vision, Denies change in vision, Denies diplopia, Denies eye discharge, Denies loss of vision and Denies eye pain ENT: Denies dizziness Cardiovascular: Cardiovascular: Reports no additional cardiovascular complaints, Denies chest pain, Denies lightheadedness, Denies Loss of Consciousness and Denies dyspnea Respiratory: Respiratory: Reports no additional respiratory complaints and Denies dyspnea Gastrointestinal: Gastrointestinal: Reports no additional gastrointestinal complaints, Denies abdominal pain, Denies melena, Denies hematochezia, Denies change in bowel habits and Denies change in stool character Genitourinary: Genitourinary: Reports no additional male genitourinary complaints, Denies hematuria, Denies oliguria, Denies difficulty urinating, Denies dysuria, Denies urinary frequency, Denies urinary hesitancy, Denies urinary incontinence and Denies urinary urgency Musculoskeletal: Musculoskeletal: Reports no additional musculoskeletal complaints, Denies numbness and Denies tingling Comments: left wrist pain Neurologic: Denies dizziness, Denies loss of vision, Denies numbness and Denies tingling Psychiatric: Psychiatric: Reports no additional psychiatric complaints Endocrine: Endocrine: Reports no additional endocrine complaints Hematologic/Lymphatic: Hematologic/Lymphatic: Reports no additional hematologic/lymphatic complaints Allergic/Immunologic: Allergic/Immunologic: Reports no additional allergic/immunologic complaints PMFSH Past Medical History Attestation statement: The following information was validated with the patient. Source: old records reviewed and nursing notes reviewed Medical History Asthma Social History Social History Alcohol intake: never Smoked in Last 30 Days: No Use of substances other than those prescribed or required for medical reasons: No Advance Directives: No Physical Exam Vital Signs: Vital Signs: Last Vital Signs Temp 98.0 F 08/12/23 22:19 Pulse 91 08/12/23 22:19 Resp 18 08/12/23 22:19 BP 129/67 08/12/23 22:19 Pulse Ox 97 08/12/23 22:19 O2 Del Method Room Air 08/12/23 22:19 BMI result Body Mass Index 22.0 Const: General: cooperative, no acute distress, alert and awake Nutritional Appearance: well nourished Orientation/consciousness: patient oriented x3 Limitations: no limitations HEENT: Head: Yes normal to inspection and Yes atraumatic Ears: hearing grossly normal bilaterally and external ears normal General nose exam: Normal external nose present, no nasal discharge noted and no epistaxis Face and sinus: Yes normal facial exam, No abrasion and No laceration Mouth: Normal oral and palatal mucosa present, no drooling and no muffled voice Eyes: General: appearance normal, both eyes and all related structures Periorbital: periorbital findings normal Eyelids: Yes eyelids normal Conjunctivae: conjunctivae normal Pupils: Equal, round and reactive pupils present EOM: EOMs intact bilaterally Neck: Neck: Yes normal visual inspection, Yes full ROM and Yes no lymphadenopathy Chest: Chest palpation & inspection: normal inspection of the chest Resp: Effort & Inspection: normal respiratory effort and able to speak in complete sentences GI: Inspection: Yes normal to inspection Neuro: General: patient oriented x3 and moves all extremities Cranial nerves: Yes Equal, round and reactive pupils present Cognition (Neuro): normal cognition Motor exam (neuro): 5/5 motor strength present throughout Sensory Exam: Normal double simultaneous stimulation for sensation Coordination: adimpr-vi-drty test normal Extrem: General: Yes normal to inspection, Yes full ROM and Yes capillary refill normal Psych: Appearance: grossly normal Mental Status: mental status grossly normal Affect: normal affect Attitude: cooperative Thought process: Normal thought process present Thought content: Normal thought content present Insight: Good insight present (Psych) Medical Decision Making Medical Decision Making MDM Narrative: Patient is a 22 year old assigned male at with no reported medical history presenting to the emergency department today with left wrist pain. Patient's physical exam was unremarkable. Patient's left wrist x-ray showed no acute process. I explained my physical exam findings as well as all test results to the patient. I answered all questions asked by the patient. Patient's left wrist was placed in a velcro splint, without incident. Patient's PMS was in tact prior to and after splint placement. I stressed the importance of the patient taking his medication as prescribed. I stressed the importance of the patient following up with his primary care provider. I stressed the importance of the patient returning to the emergency department immediately if his symptoms were to worsen or if he were to develop any dizziness, shortness of breath, difficulty breathing, chest pain, blurry vision, loss of vision, nausea, vomiting, abdominal pain, fever, chills, back pain, or any other complaints. Patient verbalized agreement and understanding with this treatment plan and discharge. Differential Diagnosis Differential Diagnoses: The differential diagnosis associated with the presentation includes Wrist fracture Wrist strain Wrist sprain Independent Interpretation I performed an independent interpretation of an: Plain X-Ray Interpretation: My interpretation is in agreement with the radiologist's impression of this imaging study. EXAMINATION: XR WRIST, LEFT CLINICAL INFORMATION: Pain. COMPARISON: None available. TECHNIQUE: Four views of the left wrist. FINDINGS: The bones and soft tissues are normal. No fracture. Alignment is anatomic with normal joint spaces. No erosions or abnormal soft tissue calcifications. XR/XR wrist LT min 3V IMPRESSION: Normal left wrist. Dictated By: Chencho Noguera MD Signed By: Electronically signed by Chencho Noguera MD 08/12/23 4115 Radiology Impression Discussion of test interpretation with radiology: I have reviewed the radiologist's reading. Procedures Orthopedic Splinting/Casting Injury #1: Side: left Upper Extremity Injury Location: wrist Upper Extremity Immobilizer: volar splint Discharge Plan Discharge Clinical Impression: Sprain and strain of wrist Patient Disposition: Home, Self-Care Instructions: Sprain (ED) Additional Instructions: Follow up with your primary care provider and if pain persists >1 week, an orthopedic provider. Return to the emergency department immediately if your symptoms worsen or if you develop any dizziness, shortness of breath, difficulty breathing, chest pain, blurry vision, loss of vision, nausea, vomiting, abdominal pain, fever, chills, back pain, or any other complaints. Prescriptions: No Action Zyrtec 10 mg capsule 10 mg PO DAILY Qty: 30 0RF prednisone 50 mg tablet 50 mg PO DAILY Qty: 4 0RF famotidine [Pepcid] 40 mg tablet 40 mg PO DAILY Qty: 4 0RF penicillin V potassium 500 mg tablet 500 mg PO TID 10 Days Qty: 30 0RF amoxicillin 500 mg capsule 500 mg PO BID 7 Days Qty: 14 0RF Magic Mouthwash Diphen/Lido/Antacid 1:1:1 240 mL suspension 5 ml PO TID Qty: 240 0RF Rx Instructions: Lidocaine Viscous 2 % 80mL; diphenhydramine 12.5 mg/5 mL 80mL; aluminum-mag hydrox-simeth [id number]/5mL 80mL Swish and spit, do not swallow Referrals: [facility] [place] [facility] [Provider Group] (Call to establish and follow up with an orthopedic provider if your pain persists >1 week. ) [place] [Primary Care Provider] - Stand Alone Forms: Work/School Release Interventions: ED Discharge Assessment Last Done: 08/13/23 00:14 Discharge Date/Time: 08/13/23 00:14 Print Language: Estonian
--- NOTE | 2023-08-12 23:15 | PC.NURSE ---
Pt A&Ox4, reports 05/19 Left wrist pain r/t door slamming into elbow causing hand to flex back. Pt able to wiggle fingers, unable to flex wrist up and down or side to side.
== END 2023-08-13 00:14 | disposition home or self-care (01) ==
PROVIDERS: Emergency Provider Emergency Medicine
DX: S63.502A Unspecified sprain of left wrist, initial encounter (principal); M25.532 Pain in left wrist; Y29.XXXA Contact with blunt object, undetermined intent, initial encounter; Y93.9 Activity, unspecified; Y92.9 Unspecified place or not applicable; Y99.9 Unspecified external cause status
CPT/HCPCS: 29125; 73110; 99283

== ENCOUNTER 2024-04-02 20:40 | Emergency (ER) | payer MEDICAID, SELFPAY ==
--- NOTE | ~2024-04-02 | XR_ITS ---
EXAMINATION: XR ANKLE, RIGHT CLINICAL INFORMATION: Pain. COMPARISON: None available. TECHNIQUE: AP, lateral, and mortise views of the right ankle. FINDINGS: No acute fracture or subluxation. Nonspecific mild diffuse soft tissue thickening. No unexpected radiopaque foreign bodies. XR/XR ankle RT min 3V IMPRESSION: 1. No acute fracture or malalignment. 2. Nonspecific mild diffuse soft tissue thickening.
[2024-04-02 21:02] VITALS: BP 126/74; PULSE 82; RESP 18; TEMP 36.7; O2SAT 96; BMI 23.5
--- NOTE | 2024-04-02 23:51 | ED_ITS ---
HPI - General Adult General Chief complaint: Extremity Injury, Lower Stated complaint: R foot heel pain Time Seen by Provider: 04/02/24 23:50 Source: patient Mode of arrival: ambulatory Limitations: no limitations History of Present Illness ED Provider: Candy Griffith PA-C HPI narrative: 23-year-old male presenting for evaluation of right ankle pain x3 days. He woke up with pain in the medial right ankle and it has been worsening since. Pain is constant, worsens with movement or walking. He works as an [employer] and is on his feet a lot. He has tried elevating his foot on pillows without relief. Has not iced or taken any medications for the pain. MD complaint: R ankle pain Onset (ago): day(s) (3) Location: right and lower extremity (medial ankle) Radiation: proximal (alf up calf) Pain Consistency: constant Relieving factors: none Exacerbating factors: movement Associated symptoms: denies other symptoms Treatments prior to arrival: none Related Data Previous Rx's ?Medication ?Instructions ?Recorded cetirizine 10 mg capsule (Zyrtec) 10 mg PO DAILY #30 caps 02/05/21 famotidine 40 mg tablet (Pepcid) 40 mg PO DAILY #4 tabs 02/09/21 prednisone 50 mg tablet 50 mg PO DAILY #4 tabs 02/09/21 penicillin V potassium 500 mg 500 mg PO TID 10 days #30 tabs 07/21/21 tablet Magic Mouthwash 5 ml PO TID #240 mL 11/01/22 Diphen/Lido/Antacid 1:1:1 240 mL suspension amoxicillin 500 mg capsule 500 mg PO BID 7 days #14 caps 11/01/22 Allergies Allergy/AdvReac Type Severity Reaction Status Date / Time shrimp Allergy Anaphylaxis Verified 04/02/24 21:06 Review of Systems Constitutional: Constitutional: Reports no additional constitutional complaints, Denies chills, Denies fever(s) and Denies night sweats Eyes: Eyes: Reports no additional eye complaints, Denies blurry vision, Denies change in vision, Denies diplopia, Denies eye discharge, Denies loss of vision and Denies eye pain ENT: Denies dizziness Cardiovascular: Cardiovascular: Reports no additional cardiovascular complaints, Denies chest pain, Denies lightheadedness, Denies Loss of Consciousness and Denies dyspnea Respiratory: Respiratory: Reports no additional respiratory complaints and Denies dyspnea Gastrointestinal: Gastrointestinal: Reports no additional gastrointestinal complaints, Denies abdominal pain, Denies melena, Denies hematochezia, Denies change in bowel habits and Denies change in stool character Genitourinary: Genitourinary: Reports no additional male genitourinary complaints, Denies hematuria, Denies oliguria, Denies difficulty urinating, Denies dysuria, Denies urinary frequency, Denies urinary hesitancy, Denies urinary incontinence and Denies urinary urgency Musculoskeletal: Musculoskeletal: Reports no additional musculoskeletal complaints, Reports arthralgias (right ankle), Denies joint swelling, Reports limited range of motion (limited by pain), Denies numbness and Denies tingling Neurologic: Denies dizziness, Denies loss of vision, Denies numbness and Denie s tingling Psychiatric: Psychiatric: Reports no additional psychiatric complaints Endocrine: Endocrine: Reports no additional endocrine complaints Hematologic/Lymphatic: Hematologic/Lymphatic: Reports no additional hematologic/lymphatic complaints Allergic/Immunologic: Allergic/Immunologic: Reports no additional allergic/immunologic complaints PMFSH Past Medical History Attestation statement: The following information was validated with the patient. Source: old records reviewed and nursing notes reviewed Medical History Asthma Social History Social History Alcohol intake: never Advance Directives: No Advance Directives Information Provided: Yes Do you have a plan to hurt others: No Plan Physical Exam ED Vital Signs: Vital Signs - 24 hr 04/02/24 21:02 04/03/24 00:29 Temperature 98.0 F 98.0 F Pulse Rate 82 82 Respiratory Rate 18 18 Blood Pressure 126/74 126/74 Pulse Oximetry 96 96 Oxygen Delivery Method Room Air Room Air BMI result Body Mass Index 23.5 Const General: cooperative, no acute distress, alert and awake Nutritional Appearance: well nourished Orientation/consciousness: patient oriented x3 Limitations: no limitations HENMT Head: Yes normal to inspection and Yes atraumatic Ears: hearing grossly normal bilaterally and external ears normal General nose exam: Normal external nose present, no nasal discharge noted and no epistaxis Face and sinus: Yes normal facial exam, No abrasion and No laceration Mouth: Normal oral and palatal mucosa present, no drooling and no muffled voice Eyes General: appearance normal, both eyes and all related structures Periorbital: periorbital findings normal Eyelids: Yes eyelids normal Conjunctivae: conjunctivae normal Pupils: Equal, round and reactive pupils present EOM: EOMs intact bilaterally Neck Neck: Yes normal visual inspection, Yes full ROM and Yes no lymphadenopathy Chest Chest palpation & inspection: normal inspection of the chest Resp Effort & Inspection: normal respiratory effort and able to speak in complete sentences GI Inspection: Yes normal to inspection Neuro General: patient oriented x3 and moves all extremities Cranial nerves: Yes Equal, round and reactive pupils present Cognition (Neuro): normal cognition Motor exam (neuro): 5/5 motor strength present throughout Sensory Exam: Normal double simultaneous stimulation for sensation Coordination: [id number] test normal Extrem General: Yes normal to inspection, Yes capillary refill normal and Yes no pedal edema Right lower extremity: normal to inspection and ankle Details: tenderness Location: of the medial malleolus and abnormal ROM Details: pain with active ROM and pain with passive ROM; no swelling, no edema, no unusual warmth and no ecchymosis Psych Appearance: grossly normal Mental Status: mental status grossly normal Affect: normal affect Attitude: cooperative Thought process: Normal thought process present Thought content: Normal thought content present Insight: Good insight present (Psych) Medications Administered Discontinued Medications Generic Name Dose Route Start Last Admin Trade Name Abiodunq PRN Reason Stop Dose Admin Ketorolac Tromethamine 15 mg 04/03/24 00:08 04/03/24 00:16 Ketorolac Tromethamine 15 Mg/Ml Vial IM 04/03/24 00:09 15 mg ONCE ONE Administration Procedures Orthopedic Splinting/Casting Injury #1: Side: right Lower Extremity Injury Location: ankle Lower Extremity Immobilizer: boot orthosis Medical Decision Making Medical Decision Making MDM Narrative: Patient is a 23 year old assigned male at with no reported medical history presenting to the emergency department today with right ankle pain. Patient's physical exam was as noted in the physical exam portion of this note. Patient's right ankle x-ray showed no acute process. I explained my physical exam findings as well as all test results to the patient. I answered all questions asked by the patient. Patient's right ankle was placed in a walking boot, without incident. Patient's PMS was intact prior to and after boot placement. I stressed the importance of the patient taking his medication as prescribed. I stressed the importance of the patient following up with his primary care provider. I stressed the importance of the patient returning to the emergency department immediately if his symptoms were to worsen or if he were to develop any dizziness, shortness of breath, difficulty breathing, chest pain, blurry vision, loss of vision, nausea, vomiting, abdominal pain, fever, chills, back pain, or any other complaints. Patient verbalized agreement and understanding with this treatment plan and discharge. Differential Diagnosis Differential Diagnoses: The differential diagnosis associated with the presentation includes Ankle fracture Ankle sprain Ankle strain Admission/Observation Consideration of admission/observation: Escalation of care including admission/observation considered Patient would have been admitted to the hospital had his work up had any findings where hospital admission was appropriate and his clinical presentation warranted hospital admission. Independent Interpretation I performed an independent interpretation of an: Plain X-Ray Interpretation: My interpretation is in agreement with the radiologist's impression of this imaging study. EXAMINATION: XR ANKLE, RIGHT CLINICAL INFORMATION: Pain. COMPARISON: None available. TECHNIQUE: AP, lateral, and mortise views of the right ankle. FINDINGS: No acute fracture or subluxation. Nonspecific mild diffuse soft tissue thickening. No unexpected radiopaque foreign bodies. XR/XR ankle RT min 3V IMPRESSION: 1. No acute fracture or malalignment. 2. Nonspecific mild diffuse soft tissue thickening. Dictated By: Vaishnavi Patel Signed By: Electronically signed by Vaishnavi Patel 04/02/24 8546 Radiology Impression Discussion of test interpretation with radiology: I have reviewed the radiologist's reading. Discharge Plan Discharge Clinical Impression: Ankle strain Patient Disposition: Home, Self-Care Instructions: Ankle Strain (ED), Walking Boot (ED) Additional Instructions: Follow up with your primary care provider. Return to the emergency department immediately if your symptoms worsen or if you develop any dizziness, shortness of breath, difficulty breathing, chest pain, blurry vision, loss of vision, nausea, vomiting, abdominal pain, fever, chills, back pain, or any other complaints. Prescriptions: No Action Zyrtec 10 mg capsule 10 mg PO DAILY Qty: 30 0RF prednisone 50 mg tablet 50 mg PO DAILY Qty: 4 0RF famotidine [Pepcid] 40 mg tablet 40 mg PO DAILY Qty: 4 0RF penicillin V potassium 500 mg tablet 500 mg PO TID 10 Days Qty: 30 0RF amoxicillin 500 mg capsule 500 mg PO BID 7 Days Qty: 14 0RF Magic Mouthwash Diphen/Lido/Antacid 1:1:1 240 mL suspension 5 ml PO TID Qty: 240 0RF Rx Instructions: Lidocaine Viscous 2 % 80mL; diphenhydramine 12.5 mg/5 mL 80mL; aluminum-mag hydrox-simeth [id number]/5mL 80mL Swish and spit, do not swallow Referrals: [facility] [place] Family Medicine [Provider Group] (Call to establish and follow up with a primary care provider. If you already have a primary care provider, please follow up with them.) [facility] [place] [facility] [Provider Group] [facility] [place] Primary [facility] [Provider Group] Stand Alone Forms: Work/School Release Interventions: ED Discharge Assessment Last Done: 04/03/24 00:29 Discharge Date/Time: 04/03/24 00:30 Print Language: German
[2024-04-03] MEDS: Ketorolac Tromethamine 15 MG/ML VIAL IM (00:16)
--- NOTE | 2024-04-03 00:19 | PC.NURSE ---
pt medicated per provider order. walking boot applied to right foot by tech. pt tolerated well.
[2024-04-03 00:29] VITALS: BP 126/74; PULSE 82; RESP 18; TEMP 36.7; O2SAT 96
--- OUTSIDE RECORDS SUMMARY | 2024-04-05 07:57 | XMS_ITS | Patient Health Record ---
Author Organization [employer] [facility] Address [address] [id number] Care Team Providers Care Alliances Consultant Name Role Phone AMBER YEBOAH Unavailable [phone] Allergies Allergen (clinical drug ingredient) Drug/Non Drug Allergy documented on EMR Reaction Allergy Type Onset Date Status shrimp allergenic extract Shrimp (Diagnostic) Unknown Drug Allergy Active Results Component Value Reference Range Notes APTIMA COMBO 2 CT/NG, Urine Reviewed date:02/15/2024 09:00:19 AM Interpretation:Negative Performing Lab:[facility], [facility] [place], [address] Tristan Gutierrez DO Notes/Report: GONORRHEA, AMPLIFIED NEGATIVE NEGATIVE CHLAMYDIA, AMPLIFIED NEGATIVE NEGATIVE DNA Test Results SEX: M : 2000 AGE: 23 [id number] CLINIC ID: [id number] SS: PHYSICIAN: AMBER YEBOAH OB GYN COLLECTED BY: [id number] Specimen Source: Urine Specimen Type: Urine, Bianca PCR Medium Neisseria gonorrhoeae: NEGATIVE Normal Value: Negative Chlamydia trachomatis: NEGATIVE Normal Value: Negative T pallidum Screening [place] -[id number] Reviewed date:02/15/2024 09:00:10 AM Interpretation:Negative Performing Lab:[facility], [address], [place], Phone - [phone], Director - Vi Notes/Report: T pallidum Antibodies Non Reactive Non Reactive HIV Ab/p24 Ag with Reflex-[id number] Reviewed date:02/15/2024 09:00:29 AM Interpretation:Negative Performing Lab:[facility] [place], [address], [place], Phone - [phone], Director - Vi Notes/Report: HIV Ab/p24 Ag Screen Non Reactive Non Reactive HIV Negative HIV-1/HIV-2 antibodies and HIV-1 p24 antigen were NOT detected. There is no laboratory evidence of HIV infection. HCV Antibody-[id number] Reviewed date:02/15/2024 09:00:39 AM Interpretation:Negative Performing Lab:[facility] [place], [address], [place], Phone - [phone], Director - Vi Notes/Report: Hep C Virus Ab Non Reactive Non Reactive HCV antibody alone does not differentiate between previously resolved infection and active infection. Equivocal and Reactive HCV antibody results should be followed up with an HCV RNA test to support the diagnosis of active HCV infection. Reason For Referral No Information Social History Sex Assigned At : Social History Observation Description Sex Assigned At Male Vital Signs Blood pressure diastolic 78 mm Hg 02/10/2024 Height 5'4 in 02/10/2024 Blood pressure systolic 108 mm Hg 02/10/2024 Weight 133 lbs 02/10/2024 BMI 22.83 kg/m2 02/10/2024 Encounters Encounter Location Date Provider Diagnosis [address] [id number] 02/10/2024 AMBER YEBOAH Encounter for screen ing for infections with a predominantly sexual mode of transmission Z11.3 ; Counseling, unspecified Z71.9 and HIV Screening Z11.4 Assessments Encounter Date Diagnosis (ICD Code) Assessment Notes Treat ment Notes Treatment Clinical Notes 02/10/2024 Encounter for screening for infections with a predominantly sexual mode of transmission (ICD-10 - Z11.3) Discussed STI's, risk factors, symptoms and infection windows. Encouraged condom use. 02/10/2024 Counseling, unspecified (ICD-10 - Z71.9) 02/10/2024 HIV Screening (ICD-10 - Z11.4) Plan Of Treatment No Information Insurance Providers Payer Name Payer Address Payer Phone Subscriber Number Group Number Insured Name Patient Relationship to Insured Coverage Start Date Coverage End Date [place] ATT CLAIMS [address] [place] [address] [phone] [id number] Hu Langley Self - patient is the insured Medical (General) History Medical History History ICD Code Asthma
== END 2024-04-03 00:30 | disposition home or self-care (01) ==
PROVIDERS: Emergency Provider Internal Medicine
DX: S96.911A Strain of unspecified muscle and tendon at ankle and foot level, right foot, initial encounter (principal); X50.3XXA Overexertion from repetitive movements, initial encounter; Y93.01 Activity, walking, marching and hiking; Y92.9 Unspecified place or not applicable; Y99.9 Unspecified external cause status; Y99.0 Civilian activity done for income or pay
CPT/HCPCS: 73610; 96372; 99283; 99284; J1885

== ENCOUNTER 2024-06-13 23:47 | Emergency (ER) | payer MEDICAID, SELFPAY ==
--- NOTE | 2024-06-13 | ECG_ITS ---
Test Reason : CHEST PAIN Blood Pressure : / mmHG Vent. Rate : 071 BPM Atrial Rate : 071 BPM P-R Int : 178 ms QRS Dur : 082 ms QT Int : 340 ms P-R-T Axes : 063 052 014 degrees QTc Int : 369 ms Normal sinus rhythm Normal ECG No previous ECGs available Referred By: Generic ED Physician Electronically Signed By:ETHEL SABILLON
--- NOTE | ~2024-06-13 | XR_ITS ---
EXAMINATION: XR CHEST CLINICAL INFORMATION: Chest pain COMPARISON: None available. TECHNIQUE: Frontal view of the chest was obtained. FINDINGS: No significant abnormality is noted involving the heart, lungs, mediastinum, bony thorax or soft tissues. XR/XR chest 1V IMPRESSION: Unremarkable examination. Electronically signed by: Jan Kidd MD 06/14/2024 12:24 AM EDT
[2024-06-13 23:49] VITALS: BP 116/82; PULSE 78; RESP 18; TEMP 36.6; O2SAT 97; BMI 23.2
[2024-06-14 00:48] LABS: Influenza A PCR NEGATIVE (Negative); Influenza B PCR NEGATIVE (Negative); Resp Syncy Virus RNA Qual PCR NEGATIVE (Negative); SARS COV2 PCR INHOUSE NEGATIVE (Negative)
--- NOTE | 2024-06-14 03:47 | ED.CHESTPAIN ---
HPI - Chest Pain General Chief Complaint: Chest Pain Stated Complaint: Chest pain Time Seen by Provider: 06/14/24 03:22 Source: patient Mode of arrival: ambulatory Limitations: no limitations History of Present Illness ED Provider: DR. Allen HPI narrative: 23-year-old male came in for evaluation of mid sternal chest pain for 2 weeks with no radiation pain is worse with movement and coughing and sneezing, declined any recent injury or trauma to the chest, pain is tender to touch. Related Data Previous Rx's ?Medication ?Instructions ?Recorded cetirizine 10 mg capsule (Zyrtec) 10 mg PO DAILY #30 caps 02/05/21 famotidine 40 mg tablet (Pepcid) 40 mg PO DAILY #4 tabs 02/09/21 prednisone 50 mg tablet 50 mg PO DAILY #4 tabs 02/09/21 penicillin V potassium 500 mg 500 mg PO TID 10 days #30 tabs 07/21/21 tablet Magic Mouthwash 5 ml PO TID #240 mL 11/01/22 Diphen/Lido/Antacid 1:1:1 240 mL suspension amoxicillin 500 mg capsule 500 mg PO BID 7 days #14 caps 11/01/22 ibuprofen 400 mg tablet 400 mg PO Q8H PRN pain #14 tabs 06/14/24 Allergies Allergy/AdvReac Type Severity Reaction Status Date / Time shrimp Allergy Anaphylaxis Verified 06/13/24 23:51 Review of Systems Review of Systems: All other systems are reviewed and are negative Constitutional: Reports as per HPI and Reports no additional constitutional complaints Eyes: Reports as per HPI and Reports no additional eye complaints Reports system reviewed and no additional complaints, except as documented Cardiovascular: Reports as per HPI and Reports no additional cardiovascular complaints Respiratory: Reports as per HPI and Reports no additional respiratory complaints Gastrointestinal: Reports as per HPI and Reports no additional gastrointestinal complaints Genitourinary: Reports no additional female genitourinary complaints Musculoskeletal: Reports no additional musculoskeletal complaints Skin/Breast: Reports system reviewed and no additional complaints, except as docu Psychiatric: Reports no additional psychiatric complaints Endocrine: Reports no additional endocrine complaints Hematologic/Lymphatic: Reports no additional hematologic/lymphatic complaints Allergic/Immunologic: Reports no additional allergic/immunologic complaints Reports system reviewed and no additional complaints, except as documented and Reports Abnormal speech present [facility] Past Medical History Medical History Asthma Social History Social History Alcohol intake: never Advance Directives: No Advance Directives Information Provided: Yes Do you have a plan to hurt others: No Plan Physical Exam Vital Signs: Vital Signs: Last Vital Signs Temp 97.9 F 06/13/24 23:49 Pulse 78 06/13/24 23:49 Resp 18 06/13/24 23:49 BP 116/82 06/13/24 23:49 Pulse Ox 97 06/13/24 23:49 O2 Del Method Room Air 06/13/24 23:49 BMI result Body Mass Index 23.2 Vital signs have been reviewed and appear to be correct. Blood pressure elevated. Heart rate normal. Respiratory rate normal. Temperature normal. Oxygen saturation normal. Appearance: Alert. Oriented X3. No acute distress. Head: Normal external exam. Normocephalic. Atraumatic. No Peters signs noted. No raccoon eyes noted Eyes: PERRLA. EOMI. Conjunctiva and sclera normal. Eyelids normal. ENT: TM's Normal. Pharynx normal. Uvula midline. Moist mucous membranes. No trismus noted. No drooling noted. No muffled voice noted. Neck: Normal inspection. Neck supple. FROM. No adenopathy. Thyroid Normal. No meningeal signs. No neck mass noted. CVS: Normal heart rate and rhythm. Heart sound normal. No murmurs noted. Pulses normal throughout. Respiratory: No respiratory distress. Painless inspiration. Breath sounds normal. No wheezes/rales/rhonchi noted. Midsternal reproducible tenderness , no deformity, step-off No accessory muscle usage noted or decreased air movement noted. Abdomen: Soft and nontender. Bowel sounds normal in all 4 quadrants. No distention noted. No organomegaly noted. No visible injury noted. Back: No CVA tenderness. Full range of motion noted. Skin: Skin warm and dry. Normal skin color. Normal skin turgor. No rashes/lesions/lacerations noted. Extremities: No lower extremity edema. Extremities exhibit normal range of motion. Extremities nontender. Neuro: Oriented X 3. Cranial nerve exam: II-XII are grossly intact No motor deficit. No sensory deficit. Reflexes normal. Course Reevaluation(s) Reevaluation #1: Costochondritis will start on NSAIDs. Time: 05:00 Medical Decision Making Differential Diagnosis Differential Diagnoses: The differential diagnosis associated with the presentation includes (Costochondritis, chest wall pain, sternal fracture.) Admission/Observation Consideration of admission/observation: Escalation of care including admission/observation considered Lab Data Labs: Lab Results 06/13/24 Range/Units 23:57 Influenza Type A (PCR) NEGATIVE (Negative) Influenza Type B (PCR) NEGATIVE (Negative) RSV RNA Qual (PCR) NEGATIVE (Negative) SARS-CoV-2 RNA (RT-PCR) NEGATIVE (Negative) Discharge Plan Discharge Clinical Impression: Costalchondritis Patient Disposition: Home, Self-Care Instructions: Costochondritis (ED) Prescriptions: New ibuprofen 400 mg tablet 400 mg PO Q8H PRN (Reason: pain) Qty: 14 0RF No Action Zyrtec 10 mg capsule 10 mg PO DAILY Qty: 30 0RF prednisone 50 mg tablet 50 mg PO DAILY Qty: 4 0RF famotidine [Pepcid] 40 mg tablet 40 mg PO DAILY Qty: 4 0RF penicillin V potassium 500 mg tablet 500 mg PO TID 10 Days Qty: 30 0RF amoxicillin 500 mg capsule 500 mg PO BID 7 Days Qty: 14 0RF Magic Mouthwash Diphen/Lido/Antacid 1:1:1 240 mL suspension 5 ml PO TID Qty: 240 0RF Rx Instructions: Lidocaine Viscous 2 % 80mL; diphenhydramine 12.5 mg/5 mL 80mL; aluminum-mag hydrox-simeth [id number]/5mL 80mL Swish and spit, do not swallow Referrals: [facility] [Primary Care Provider] - Print Language: Rwandan
[2024-06-14 04:50] VITALS: BP 116/82; PULSE 78; RESP 18; TEMP 36.6; O2SAT 97
== END 2024-06-14 05:00 | disposition home or self-care (01) ==
PROVIDERS: Emergency Provider Emergency Medicine
DX: M94.0 Chondrocostal junction syndrome [Tietze] (principal); Z03.818 Encounter for observation for suspected exposure to other biological agents ruled out; J45.909 Unspecified asthma, uncomplicated; Z79.899 Other long term (current) drug therapy
CPT/HCPCS: 0241U; 71045; 93005; 99283

== ENCOUNTER 2024-06-29 01:45 | Emergency (ER) | payer MEDICAID, SELFPAY ==
--- NOTE | ~2024-06-29 | XR_ITS ---
EXAMINATION: XR CHEST CLINICAL INFORMATION: Cough. COMPARISON: June 14, 2024. TECHNIQUE: Frontal view of the chest was obtained. FINDINGS: No significant abnormality is noted involving the heart, lungs, mediastinum, bony thorax or soft tissues. XR/XR chest 1V IMPRESSION: Unremarkable examination. Electronically signed by: Sudarshan Menezes MD 06/29/2024 02:56 AM EDT
[2024-06-29 01:48] VITALS: BP 118/68; PULSE 78; RESP 18; TEMP 36.8; O2SAT 97; BMI 23.2
[2024-06-29 02:37] LABS: Influenza A PCR NEGATIVE (Negative); Influenza B PCR NEGATIVE (Negative); Resp Syncy Virus RNA Qual PCR NEGATIVE (Negative); SARS COV2 PCR INHOUSE NEGATIVE (Negative)
[2024-06-29 03:27] VITALS: BP 117/71; PULSE 76; RESP 17; TEMP 36.6; O2SAT 98
[2024-06-29] MEDS: Benzonatate 100 MG CAPSULE 200 MG PO (03:32)
[2024-06-29] MEDS: Albuterol Sulfate 90 MCG 8 GM INHALER 2 PUFF INHALE (03:37)
--- NOTE | 2024-06-29 03:37 | ED.URI ---
HPI - URI/Sore Throat General Chief Complaint: Upper Respiratory Symptoms Stated Complaint: coughing, sore throat Time Seen by Provider: 06/29/24 03:07 Source: patient Mode of arrival: ambulatory Limitations: no limitations History of Present Illness ED Provider: morro POON Narrative: Patient with History of asthma been coughing with sore throat for last 2 days no fever no chills no other family member sick cough is mostly dry Related Data Previous Rx's ?Medication ?Instructions ?Recorded cetirizine 10 mg capsule (Zyrtec) 10 mg PO DAILY #30 caps 02/05/21 famotidine 40 mg tablet (Pepcid) 40 mg PO DAILY #4 tabs 02/09/21 prednisone 50 mg tablet 50 mg PO DAILY #4 tabs 02/09/21 penicillin V potassium 500 mg 500 mg PO TID 10 days #30 tabs 07/21/21 tablet Magic Mouthwash 5 ml PO TID #240 mL 11/01/22 Diphen/Lido/Antacid 1:1:1 240 mL suspension amoxicillin 500 mg capsule 500 mg PO BID 7 days #14 caps 11/01/22 ibuprofen 400 mg tablet 400 mg PO Q8H PRN pain #14 tabs 06/14/24 albuterol sulfate 90 mcg/actuation 2 puff inhalation Q6H PRN 06/29/24 aerosol inhaler shortness of breath or wheezing #8.5 grams benzonatate 200 mg capsule 200 mg PO TID PRN cough #20 caps 06/29/24 cefuroxime axetil 500 mg tablet 500 mg PO BID 7 days #14 tabs 06/29/24 prednisone 20 mg tablet 40 mg (2 x 20 mg) PO DAILY #10 tabs 06/29/24 Allergies Allergy/AdvReac Type Severity Reaction Status Date / Time shrimp Allergy Anaphylaxis Verified 06/29/24 01:50 Review of Systems Review of Systems: Yes all other systems are reviewed and are negative PMFSH Past Medical History Medical History Asthma Social History Social History Alcohol intake: never Smoked in Last 30 Days: No Use of substances other than those prescribed or required for medical reasons: No Advance Directives: No Advance Directives Information Provided: No Physical Exam Vital Signs: Vital Signs: Last Vital Signs Temp 98.7 F 06/29/24 04:41 Pulse 77 06/29/24 04:41 Resp 17 06/29/24 04:41 BP 114/65 06/29/24 04:41 Pulse Ox 97 06/29/24 04:41 O2 Del Method Room Air 06/29/24 04:41 BMI result Body Mass Index 23.2 Appearance: Alert. Oriented X3. No acute distress. ENT: Pharynx erythematous no exudates Oral Mucosa moist Neck: Normal inspection. Neck supple. CVS: Normal heart rate and rhythm. Pulses normal. Respiratory: No respiratory distress. Equal air entry bilateral, no wheezing/rales/rhonchi prolonged expiration with frequent cough Skin: Skin warm and dry. Normal skin color. Normal skin turgor. Extremities: No lower extremity edema. Neuro: Oriented X 3. Medications Administered Discontinued Medications Generic Name Dose Route Start Last Admin Trade Name Freq PRN Reason Stop Dose Admin Albuterol Sulfate 2 puff 06/29/24 03:11 06/29/24 03:37 Albuterol Sulfate 90 Mcg 8 Gm Inhaler INHALE 06/29/24 03:12 2 puff ONCE ONE Administration Benzonatate 200 mg 06/29/24 03:11 06/29/24 03:32 Benzonatate 100 Mg Capsule PO 06/29/24 03:12 200 mg ONCE ONE Administration Cefuroxime Axetil 500 mg 06/29/24 04:21 06/29/24 04:30 Cefuroxime Axetil 500 Mg Tablet PO 06/29/24 04:22 500 mg ONCE ONE Administration Prednisone 40 mg 06/29/24 04:22 06/29/24 04:29 Prednisone 20 Mg Tablet PO 06/29/24 04:23 40 mg ONCE ONE Administration Medical Decision Making Lab Data MDM Lab Attestation statement: I reviewed the patient's lab results. Labs: Lab Results 06/29/24 06/29/24 Range/Units 01:56 03:26 Influenza Type A (PCR) NEGATIVE (Negative) Influenza Type B (PCR) NEGATIVE (Negative) RSV RNA Qual (PCR) NEGATIVE (Negative) SARS-CoV-2 RNA (RT-PCR) NEGATIVE (Negative) S. pyogenes GrpA DAISY Negative (Negative) Discharge Plan Discharge Clinical Impression: Bronchitis Patient Disposition: Home, Self-Care Instructions: Acute Bronchitis (ED) Additional Instructions: Take antibiotic as prescribed Use your inhaler 2 puffs every 4-6 hours as needed Prednisone as prescribed Follow with PCP as needed Prescriptions: New benzonatate 200 mg capsule 200 mg PO TID PRN (Reason: cough) Qty: 20 0RF cefuroxime axetil 500 mg tablet 500 mg PO BID 7 Days Qty: 14 0RF albuterol sulfate 90 mcg/actuation HFA aerosol inhaler 2 puff inhalation Q6H PRN (Reason: shortness of breath or wheezing) Qty: 8.5 0RF prednisone 20 mg tablet 40 mg PO DAILY Qty: 10 0RF No Action Zyrtec 10 mg capsule 10 mg PO DAILY Qty: 30 0RF prednisone 50 mg tablet 50 mg PO DAILY Qty: 4 0RF famotidine [Pepcid] 40 mg tablet 40 mg PO DAILY Qty: 4 0RF penicillin V potassium 500 mg tablet 500 mg PO TID 10 Days Qty: 30 0RF amoxicillin 500 mg capsule 500 mg PO BID 7 Days Qty: 14 0RF Magic Mouthwash Diphen/Lido/Antacid 1:1:1 240 mL suspension 5 ml PO TID Qty: 240 0RF Rx Instructions: Lidocaine Viscous 2 % 80mL; diphenhydramine 12.5 mg/5 mL 80mL; aluminum-mag hydrox-simeth [id number]/5mL 80mL Swish and spit, do not swallow ibuprofen 400 mg tablet 400 mg PO Q8H PRN (Reason: pain) Qty: 14 0RF Stand Alone Forms: Work/School Release Interventions: ED Discharge Assessment Last Done: 06/29/24 04:41 Discharge Date/Time: 06/29/24 04:42 Print Language: Andorran
[2024-06-29 03:57] LABS: IDNOW Serial# 6674DD1D; Strep A Nucleic Acid Negative (Negative)
[2024-06-29] MEDS: predniSONE 20 MG TABLET 40 MG PO (04:29)
[2024-06-29] MEDS: cefuroxime axetiL 500 MG TABLET PO (04:30)
[2024-06-29 04:41] VITALS: BP 114/65; PULSE 77; RESP 17; TEMP 37.1; O2SAT 97
== END 2024-06-29 04:42 | disposition home or self-care (01) ==
PROVIDERS: Emergency Provider Internal Medicine
DX: J40 Bronchitis, not specified as acute or chronic (principal); J02.9 Acute pharyngitis, unspecified; R05.9 Cough, unspecified; Z20.822 Contact with and (suspected) exposure to COVID-19
CPT/HCPCS: 0241U; 71045; 87651; 99284

== ENCOUNTER 2024-12-29 23:51 | Emergency (ER) | payer MEDICAID, SELFPAY ==
--- NOTE | ~2024-12-29 | XR_ITS ---
CLINICAL HISTORY: swelling, pain ?sprain 3 view left ankle Comparison: X-rays of the left ankle from 07/13/2022 Findings: Upqyf-ez-fzgdoltk effusion present. Superficial soft tissues swelling is new, particularly laterally. No displaced fracture. No dislocation. No radiopaque retained foreign body. IMPRESSION: 1. No acute fracture or dislocation. 2. Soft tissue swelling, with effusion present. This document has been electronically signed by: Imer Zhu MD on 12/30/2024 01:16:56
[2024-12-30 00:17] VITALS: BP 117/80; PULSE 82; RESP 16; TEMP 36.7; O2SAT 97; BMI 24.0
[2024-12-30] MEDS: Ibuprofen 600 MG TABLET PO (03:39)
--- NOTE | 2024-12-30 03:41 | MHC.EDTECH ---
at this time this tech attempted to apply an air cast and provide the pt w/ crutches + education on crutches use. The pt stated I am a single father with young kids, they won't let me walk around on crutches. Pt requested a walking boot instead and was educated that extent of injury did not qualify for a walking boot. Pt allowed this tech to apply air cast in order to allow for ankle support while his sprain heals, however he continued to refuse the need for crutches, RN made aware of refusal.
--- NOTE | 2024-12-30 03:51 | PC.NURSE ---
Resumed care of pt at 0300, provider placed dc, pt in agreement with dc plan, pt refused crutches at this time but did allow staff to put an aircast on. Pt able to ambulate out of ED, pt advised by this RN and provider to use the crutches however pt continued to decline.
[2024-12-30 03:52] VITALS: BP 134/90; PULSE 83; RESP 16; TEMP 36.8; O2SAT 94
--- NOTE | 2025-01-01 18:38 | ED_ITS ---
HPI - Extremity Injury (Lower) General Chief Complaint: Extremity Injury, Lower Stated Complaint: Sprained L ankle Time Seen by Provider: 12/30/24 02:05 Source: patient Mode of arrival: ambulatory Limitations: no limitations History of Present Illness ED Provider: HPI Narrative: Apparently patient was running in the road race slipped on a water bottle and fell complaining of left ankle pain since then able to ambulate but with pain no other injuries Related Data Previous Rx's ?Medication ?Instructions ?Recorded cetirizine 10 mg capsule (Zyrtec) 10 mg PO DAILY #30 caps 02/05/21 famotidine 40 mg tablet (Pepcid) 40 mg PO DAILY #4 tabs 02/09/21 prednisone 50 mg tablet 50 mg PO DAILY #4 tabs 02/09/21 penicillin V potassium 500 mg 500 mg PO TID 10 days #30 tabs 07/21/21 tablet Magic Mouthwash 5 ml PO TID #240 mL 11/01/22 Diphen/Lido/Antacid 1:1:1 240 mL suspension amoxicillin 500 mg capsule 500 mg PO BID 7 days #14 caps 11/01/22 ibuprofen 400 mg tablet 400 mg PO Q8H PRN pain #14 tabs 06/14/24 albuterol sulfate 90 mcg/actuation 2 puff inhalation Q6H PRN 06/29/24 aerosol inhaler shortness of breath or wheezing #8.5 grams benzonatate 200 mg capsule 200 mg PO TID PRN cough #20 caps 06/29/24 cefuroxime axetil 500 mg tablet 500 mg PO BID 7 days #14 tabs 06/29/24 prednisone 20 mg tablet 40 mg (2 x 20 mg) PO DAILY #10 tabs 06/29/24 ibuprofen 600 mg tablet 600 mg PO Q6H PRN fever or pain 12/30/24 #30 tabs Allergies Allergy/AdvReac Type Severity Reaction Status Date / Time shrimp Allergy Anaphylaxis Verified 12/30/24 00:22 Review of Systems 2 Review of Systems: Yes all other systems are reviewed and are negative PMFSH Past Medical History Medical History Asthma Social History Social History Alcohol intake: never Advance Directives: No Advance Directives Information Provided: Yes Physical Exam 2 Vital Signs: Vital Signs: Last Vital Signs Temp 98.2 F 12/30/24 03:52 Pulse 83 12/30/24 03:52 Resp 16 12/30/24 03:52 BP 134/90 H 12/30/24 03:52 Pulse Ox 94 12/30/24 03:52 O2 Del Method Room Air 12/30/24 03:52 BMI result Body Mass Index 24.0 Appearance: Alert. Oriented X3. No acute distress. Neck: Normal inspection. Neck supple. CVS: Normal heart rate and rhythm. Pulses normal. Respiratory: No respiratory distress. Equal air entry bilateral, no wheezing/rales/rhonchi Abdomen: Soft and nontender. Bowel sounds are present, no mass palpable, no CVA tenderness Skin: Skin warm and dry. Normal skin color. Normal skin turgor. Extremities: Left foot diffuse tenderness of lateral malleolus with swelling neurovascular intact Neuro: Oriented X 3. No motor deficit. Extrem: Ankle/foot/toe images: 1. Soft tissue swelling with tenderness neurovascular intact Medications Administered Discontinued Medications Generic Name Dose Route Start Last Admin Trade Name Freq PRN Reason Stop Dose Admin Ibuprofen 600 mg 12/30/24 02:43 12/30/24 03:39 Ibuprofen 600 Mg Tablet PO 12/30/24 02:44 600 mg ONCE ONE Administration Medical Decision Making Medical Decision Making MDM Narrative: Patient with left ankle sprain ankle Aircast was applied patient refused versus advised to take ibuprofen for pain Independent Interpretation I performed an independent interpretation of an: Plain X-Ray Interpretation: NAD Radiology Impression Discussion of test interpretation with radiology: I have reviewed the radiologist's reading. Discharge Plan Discharge Clinical Impression: Ankle sprain and strain Patient Disposition: Home, Self-Care Instructions: Ankle Sprain (ED) Additional Instructions: Wear the ankle Aircast and use crutches for ambulation Your x-rays negative for fracture Take ibuprofen for pain Prescriptions: New ibuprofen 600 mg tablet 600 mg PO Q6H PRN (Reason: fever or pain) Qty: 30 0RF No Action Zyrtec 10 mg capsule 10 mg PO DAILY Qty: 30 0RF prednisone 50 mg tablet 50 mg PO DAILY Qty: 4 0RF famotidine [Pepcid] 40 mg tablet 40 mg PO DAILY Qty: 4 0RF penicillin V potassium 500 mg tablet 500 mg PO TID 10 Days Qty: 30 0RF amoxicillin 500 mg capsule 500 mg PO BID 7 Days Qty: 14 0RF Magic Mouthwash Diphen/Lido/Antacid 1:1:1 240 mL suspension 5 ml PO TID Qty: 240 0RF Rx Instructions: Lidocaine Viscous 2 % 80mL; diphenhydramine 12.5 mg/5 mL 80mL; aluminum-mag hydrox-simeth [id number]/5mL 80mL Swish and spit, do not swallow benzonatate 200 mg capsule 200 mg PO TID PRN (Reason: cough) Qty: 20 0RF cefuroxime axetil 500 mg tablet 500 mg PO BID 7 Days Qty: 14 0RF albuterol sulfate 90 mcg/actuation HFA aerosol inhaler 2 puff inhalation Q6H PRN (Reason: shortness of breath or wheezing) Qty: 8.5 0RF prednisone 20 mg tablet 40 mg PO DAILY Qty: 10 0RF ibuprofen 400 mg tablet 400 mg PO Q8H PRN (Reason: pain) Qty: 14 0RF Interventions: ED Discharge Assessment Last Done: 12/30/24 03:52 Discharge Date/Time: 12/30/24 03:53 Print Language: Telugu
== END 2024-12-30 03:53 | disposition home or self-care (01) ==
PROVIDERS: Emergency Provider Internal Medicine
DX: S93.402A Sprain of unspecified ligament of left ankle, initial encounter (principal); S96.912A Strain of unspecified muscle and tendon at ankle and foot level, left foot, initial encounter; W01.0XXA Fall on same level from slipping, tripping and stumbling without subsequent striking against object, initial encounter; Y93.89 Activity, other specified; Y92.89 Other specified places as the place of occurrence of the external cause; Y99.9 Unspecified external cause status; M25.572 Pain in left ankle and joints of left foot
CPT/HCPCS: 73600; 99283

== ENCOUNTER → 2025-02-14 14:40 | Outpatient (BNVA) | payer SELFPAY | PROVIDERS: Visit Provider Physician Assistant Medical | DX: Z02.1 Encounter for pre-employment examination (principal) ==

== ENCOUNTER 2025-06-10 18:07 | Emergency (ER) | payer MEDICAID, SELFPAY ==
--- OUTSIDE RECORDS SUMMARY | 2017-06-17 06:20 | XMS_ITS | Continuity of Care Document ---
Author Organization [facility] Mantilla [facility] Address [address] [place] [address] Phone Care Team Providers Care Analysis Tester Name Role Phone Unavailable Unavailable Unavailable Allergies, Adverse Reactions, Alerts Substance Reaction Status Criticality No Known Allergies Active No Inform ation Procedures Procedure Date PREV VISIT, NEW, AGE 18-39 Results Test Name Date and Time Measure Units Reference Range Abnormal Flag Status Comments Panel Description: CBC WITH DIFF: 0908:H [id number] OrderCompl eted CBC WITH DIFF: WBC 14:31:00 [...] () Panel Description: MAIKEL ASHLI METABOLIC PANEL: 0908:[id number] OrderCompl eted COMP: BLOOD SUGAR 15:33:00 75 [...] ed REFERENCE RANGE LESS THAN 200 mg/dL XQXTZPHUAX261- 240 mg/dL BORDERLINE HIGHGREATER THAN 240 mg/dL HIGHPerformed by:Main [facility] (ML) (ML) JEANMARIE: TRIGLYCERI DE 15:33:00 45 mg/dL -149 OrderComplet ed REFERENCE RANGE <150 mg/dL Tvesjb715-974 mg/dL Borderline Zkda745-037 mg/dL High >=500 mg/dL Very HighPerformed by:Main [facility] (ML) (ML) JEANMARIE: HIGH DENSITY LIPIDS 15:33:00 45 mg/dL 40-59 OrderComplet ed REFERENCE RANGE LESS THAN 40 MG/DL LOWGREATER THAN OR EQUAL TO 60 MG/DL HIGHPerformed by:[facility] (ML) (ML) JEANMARIE: LOW DENSITY LIPIDS CALCULATED 15:33:00 76 mg/dL 1-99 OrderComplet ed REFERENCE RANGE LESS THAN 100 MG/DL MMXEYKR043-894 MG/DL NEAR/ABOVE YWDKZWP754-107 MG/DL BORDERLINE ZNDX226-451 MG/DL HIGHGREATER THAN OR EQUAL TO 190 MG/DL VERY HIGHPerformed by:Main [facility] (ML) (ML) JEANMARIE: CHOL/HDL RATIO 15:33:00 2.9 OrderComplet ed Performed by:[facility] (ML) (ML) Panel Description: TSH: 0908:[id number] O rderCompl eted TSH 15:33:00 0.671 uIU/mL 0.463-3.98 OrderComplet ed Performed by:[facility] (ML) (ML) Panel Description: CELENAEN SILVANAE METABOLIC PANEL: 0908:[id number] OrderCompl eted COMP: BLOOD SUGAR 15:33:00 75 [...] ed REFERENCE RANGE LESS THAN 200 mg/dL VLWZDIGNSV828- 240 mg/dL BORDERLINE HIGHGREATER THAN 240 mg/dL HIGHPerformed by:[facility] (ML) (ML) JEANMARIE: TRIGLYCERI DE 15:33:00 45 mg/dL -149 OrderComplet ed REFERENCE RANGE <150 mg/dL Vstfdu312-338 mg/dL Borderline Aept263-013 mg/dL High >=500 mg/dL Very HighPerformed by:[facility] (ML) (ML) JEANMARIE: HIGH DENSITY LIPIDS 15:33:00 45 mg/dL 40-59 OrderComplet ed REFERENCE RANGE LESS THAN 40 MG/DL LOWGREATER THAN OR EQUAL TO 60 MG/DL HIGHPerformed by:[facility] (ML) (ML) JEANMARIE: LOW DENSITY LIPIDS CALCULATED 15:33:00 76 mg/dL 1-99 OrderComplet ed REFERENCE RANGE LESS THAN 100 MG/DL DHCPUIH111-04 9 MG/DL NEAR/ABOVE DYKGTWW751-331 MG/DL BORDERLINE SICY618-893 MG/DL HIGHGREATER THAN OR EQUAL TO 190 MG/DL VERY HIGHPerformed by:Main [facility] (ML) (ML) JEANMARIE: CHOL/HDL RATIO 15:33:00 2.9 OrderComplet ed Performed by:[facility] (ML) (ML) Panel Description: TSH: 0908:[id number] O rderCompl eted TSH 15:33:00 0.671 uIU/mL 0.463-3.98 OrderComplet ed Performed by:[facility] (ML) () Panel Description: HGB A1C: 0908:[id number] OrderCompl eted HGB A1C: HGB A1C 16:04:00 5.2 % < 5.7 OrderComplet ed Normal range: < 5.7%Increased risk for Diabetes: 5.7%-6.4%Diabe liliana: > or = 6.5%Diabetic Therapeutic Goal: < 7.0%Reevaluate Therapy: > 8.0% Reference range is from guidelines of the 2010 ADA([place] Diabetes Association).P erformed by:[facility] ([facility]) HGB A1C: EST AVERAGE GLUCOSE Sep-08-201 7 16:04:00 103 mg/dL OrderComplet ed Performed by:[facility] ([facility]) Panel Description: HIV 1/2 COMBO: 0908:C [id number] OrderCompl eted HIV 1/2 COMBO 7 16:20:00 NON-REACTIVE NON-REACTIVE OrderComplet ed Negative for HIV-1 & HIV-2 antibodies and p24 Antigen NEW HIV TEST 4TH GENERATION IN USE Oct,Performed by:[facility] (ML) (ML) Panel Description: RPR: [id number] O rderCompl eted RPR 08:28:00 NONREACTIVE NONREACTIVE OrderComplet ed Performed by:[facility] (ML) (ML) Panel Description: GENPROBE APTIMA GC/CH HILARIO: 0908:[id number] OrderCompl eted GENPROBE APTIMA: GENPROBE APTIMA CHLAMYDIA 7 14:28:00 Negative NEGATIVE OrderComplet ed Performed by:[facility] (ML) (ML) GENPROBE APTIMA: GENPROBE APTIMA GC 7 14:28:00 Negative NEGATIVE OrderComplet ed Performed by:[facility] (ML) (ML) Panel Description: HEP C ANTIBODY: 0908: [id number] OrderCompl eted HEP C ANTIBODY 14:31:00 NON-REACTIVE NON-REACT OrderComplet ed Performed by:[facility] (ML) (ML) Advance Directives Directive Yes / No Effective Date File Name No Information Encounters Encounter Description Practice Location Reason(s) For Visit Diagnoses Date Provider Providers Copied on Encounter PREV VISIT, NEW, AGE 18-39 David Burrell [facility], [address] [place] [address] [address], [place], [place], [id number], [place] tel:[phone] [facility] preventive exam (chief complaint) Encntr for [...] testicular Payers Payer name Insurance type Covered republican ID Marilyn miranda(s) [facility] [id number] Social History Type Description Quantity Date Captured [...] Mental Status Date Cognitive Assessment Orientation - [place] ed to time, place, person, situation. Patient Care Teams Name Effective Dates (start - stop) Status Members No Information
--- OUTSIDE RECORDS SUMMARY | 2025-03-27 07:15 | XMS_ITS ---
Author Organization [facility] Address [address] [place] [id number] Care Team Providers Care Corporate Director Name Role Phone PAUL NELSON Unavailable [phone] REASON FOR VISIT Counseling/Testing Social History Sex Assigned At : Social History Observation Description Sex Assigned At Male Encounters Encounter Location Date Provider Diagnosis [facility] [address] [place], [place] [id number] PAUL NELSON Plan Of Treatment No Information Progress Notes * Hu LANGLEY GDOB: [birth year] (24 yo M)Acc No.[id number]:03/27/2025 Progress Notes Patient: Traci harrisHu Provider: Kenji NELSON :2000 A ge:24 Y S ex:Male Date:03/27/2025 Address:[address] [place], [place] [id number] Subjective: * Chief Complaints: * C ounseling/Testing Billing Information: * Procedure Codes: * Electronic signature of JEANNIE NELSON CNM on 06/10/2025 at 08:52 PM EDT Sign off status: Pending * Provider: Kenji NELSON Date: 03/27/2025 Generated for Keren cisse/Priyank/Aruna on: 06/10/2025 08:52 PM EDT
--- NOTE | ~2025-06-10 | CT_ITS ---
CLINICAL HISTORY: ureteral stone, MICROHEMATURIA PER PT CT abdomen and pelvis without contrast Comparison: None provided Findings: CT abdomen: Lung bases are clear. No acute bony lesion. No renal or ureteral calculi identified. No hydronephrosis or perinephric stranding. Unenhanced liver, spleen, pancreas, gallbladder, and adrenal glands are unremarkable. Large amount of ingested contents within the stomach. Small hiatal hernia. Small bowel loops are of normal caliber. No free fluid or free air. CT pelvis: Appendix is normal. No colonic wall thickening or pericolonic inflammatory stranding. Urinary bladder is mildly distended. No bladder calculi. No abnormal bladder wall thickening. No free fluid or free air. IMPRESSION: No acute findings. Specifically, no renal or ureteral calculi identified. This document has been electronically signed by: Javier Nicholas MD on 06/10/2025 23:30:24
[2025-06-10 18:24] VITALS: BP 134/64; PULSE 89; RESP 20; TEMP 37; O2SAT 98; BMI 25.4
--- NOTE | 2025-06-10 18:28 | ED_ITS ---
HPI - General Adult General Chief complaint: General Medical Stated complaint: 3x hematuria sent from urgent care Time Seen by Provider: 06/10/25 21:32 Source: patient Limitations: no limitations History of Present Illness ED Provider: Katie Munoz PA-C HPI narrative: 24-year-old otherwise healthy male presents with hematuria. Patient states he was having a physical, he was found to have blood in his urine. Denies history of kidney stones, dysuria, back pain, flank pain, abdominal pain, nausea vomiting fever, no testicular pain or swelling. No obvious scrotal masses. Related Data Previous Rx's ?Medication ?Instructions ?Recorded cetirizine 10 mg capsule (Zyrtec) 10 mg PO DAILY #30 c aps 02/05/21 famotidine 40 mg tablet (Pepcid) 40 mg PO DAILY #4 tab s 02/09/21 prednisone 50 mg tablet 50 mg PO DAILY #4 tabs 02/09 penicillin V potassium 500 mg 500 mg PO TID 10 days #3 0 tabs 07/21/21 tablet Magic Mouthwash 5 ml PO TID #240 mL 11/01/22 Diphen/Lido/Antacid 1:1:1 240 mL suspension amoxicillin 500 mg capsule 500 mg PO BID 7 days #14 ca ps 11/01/22 ibuprofen 400 mg tablet 400 mg PO Q8H PRN pain #14 t abs 06/14/24 albuterol sulfate 90 mcg/actuation 2 puff inhalation Q 6H PRN 06/29/24 aerosol inhaler shortness of breath or wheez ing #8.5 grams benzonatate 200 mg capsule 200 mg PO TID PRN cough #20 caps 06/29/24 cefuroxime axetil 500 mg tablet 500 mg PO BID 7 days # 14 tabs 06/29/24 prednisone 20 mg tablet 40 mg (2 x 20 mg) PO DAILY # 10 tabs 06/29/24 ibuprofen 600 mg tablet 600 mg PO Q6H PRN fever or p ain 12/30/24 #30 tabs Allergies Allergy/AdvReac Type Severity Reaction Status Date / Time shrimp Allergy Anaphylaxis Verified 06/10/25 18:24 Review of Systems 2 Review of Systems: Yes all other systems are reviewed and are negative Constitutional: Constitutional: Denies fatigue and Denies fever(s) Cardiovascular: Cardiovascular: Denies chest pain and Denies dyspnea Respiratory: Respiratory: Denies dyspnea Gastrointestinal: Gastrointestinal: Denies abdominal pain, Denies nausea and Denies vomiting Genitourinary: Genitourinary: Reports hematuria, Denies genital pain, Denies dysuria, Denies flank pain, Denies penile discharge, Denies scrotal swelling, Denies testicular mass and Denies testicular pain Musculoskeletal: Musculoskeletal: Denies back pain Endocrine: Endocrine: Denies fatigue [facility] Past Medical History Attestation statement: The following information was validated with the patient. Medical History Asthma Social History Social History Alcohol intake: never Physical Exam ED Vital Signs: Vital Signs - 24 hr 06/10/25 20:44 06/10/25 22:26 06/11/25 00:52 Temperature 98.8 F 98.3 F 98.3 F Pulse Rate 74 67 67 Respiratory Rate 18 18 18 Blood Pressure 118/67 107/57 L 107/57 L Pulse Oximetry 97 97 97 Oxygen Delivery Method Room Air Room Air Room Air BMI result Body Mass Index 25.4 Const Other: Alert well appearing Orientation/consciousness: patient oriented x3 Resp Effort & Inspection: normal respiratory effort Cardio Other: normal peripheral perfusion GI Other: soft nontender nondistended no guarding General: Yes no CVA tenderness Back/Spine/Pelvis Back: no CVA tenderness Skin Other: warm dry no rash Neuro General: patient oriented x3, gait normal, no focal motor deficits and CN's II- XI intact bilaterally Psych Other: cooperative Course Course Course Narrative: RME: 24-year-old male sent from job physical for 3+ blood found in his urine. Patient is asymptomatic. Patient denies any genitourinary symptoms. Labs UA ordered Medical Decision Making Medical Decision Making MDM Narrative: 24-year-old otherwise healthy male presents with hematuria. Patient states he was having a physical, he was found to have blood in his urine. Denies history of kidney stones, dysuria, back pain, flank pain, abdominal pain, nausea vomiting fever, no testicular pain or swelling. no testicular lesions No chronic issues History: Per patient I have considered the following differential diagnoses: Urinary tract infection, renal colic, testicular cancer , Renal cancer, Pyelonephritis Plan: screening labs including a urinalysis were obtained from triage, there was no evidence of infection. The patient has no back, flank, abdominal pain or active symptoms / GI symptoms, to suggest renal colic, or pyelonephritis. I am most concerned for testicular cancer given his age. And with painless hematuria. I do not have the ability to obtain a scrotal ultrasound. We will obtain a CT scan. He will be getting referred to Urology. I have independently reviewed the following tests: Labs: no leukocytosis, not anemic, no electrolyte abnormality, urine not infected but passing hematuria CT abdomen and pelvis:CT abdomen: Lung bases are clear. No acute bony lesion. No renal or ureteral calculi identified. No hydronephrosis or perinephric stranding. Unenhanced liver, spleen, pancreas, gallbladder, and adrenal glands are unremarkable. Large amount of ingested contents within the stomach. Small hiatal hernia. Small bowel loops are of normal caliber. No free fluid or free air. CT pelvis: Appendix is normal. No colonic wall thickening or pericolonic inflammatory stranding. Urinary bladder is mildly distended. No bladder calculi. No abnormal bladder wall thickening. No free fluid or free air. IMPRESSION: No acute findings. Specifically, no renal or ureteral calculi identified. Differential Diagnosis Differential Diagnoses: The differential diagnosis associated with the presentation includes See [facility] Admission/Observation Consideration of admission/observation: Escalation of care including admission/observation considered Not applicable Lab Data [facility] Lab Attestation statement: I reviewed the patient's lab results. 06/10/25 19:03 06/10/25 19:03 Labs: Lab Results 06/10/25 Range/Units 19:03 WBC 8.6 (4.8-10.8) X10*3/uL RBC 5.60 (4.60-5.80) X10*6/uL Hgb 15.1 (14.0-18.0) g/dl Hct 45.7 (42.0-52.0) % MCV 81.6 (80.0-98.0) fL MCH 27.0 (27.0-33.0) pg MCHC 33.0 (31.0-36.0) g/dl RDW 13.7 (11.0-16.0) % Plt Count 201 (160-400) X10*3/uL MPV 10.3 (9.4-12.4) fL Immature Gran % (Auto) 0.3 (0.0-0.4) % Neut % (Auto) 71.5 (45-73) % Lymph % (Auto) 21.6 (20-40) % [place] % (Auto) 4.9 (2-11) % Eos % (Auto) 1.4 (0-4) % Baso % (Auto) 0.3 (0-2) % Lymph # (Auto) 1.9 (1.2-4.9) X10*3/uL [place] # (Auto) 0.4 (0.1-1.2) X10*3/uL Eos # (Auto) 0.1 (0.0-0.4) X10*3/uL Baso # (Auto) 0.0 (0.0-0.2) X10*3/uL Abs Immat Gran (auto) 0.03 (0.00-0.03) X10*3/uL Absolute Neuts (auto) 6.2 (2.0-8.3) x10*3/uL Absolute Nucleated RBC 0.000 (0.0-0.012) X10*3/uL Nucleated RBC % (auto) 0.0 (0.0-0.2) /100WBC PT 11.7 (10.9-12.4) SEC INR 1.0 (0.9-1.1) APTT 34.4 H (26.7-34.1) SEC Sodium 143 (135-145) mmol/L Potassium 3.6 (3.3-5.1) mmol/L Chloride 109 H (96-108) mmol/L Carbon Dioxide 27 (22-29) mmol/L Anion Gap 11 L (12-20) BUN 17 H (9-16) mg/dL Creatinine 0.92 (0.5-1.4) mg/dL Estim Creat Clear Calc 105.8 Estimated GFR > 60 Random Glucose 106 (60-115) mg/dL Calcium 9.7 (8.4-10.2) mg/dL Total Bilirubin 0.7 (0.0-1.0) mg/dL AST 44 H (5-37) U/L ALT 109 H (0-40) U/L Alkaline Phosphatase 74 (39-117) U/L Total Protein 7.7 (6.5-8.0) g/dL Albumin 5.2 H (3.5-5.0) g/dL Urine Color Yellow Urine Appearance Clear Urine pH 5.5 (5.0-9.0) Ur Specific [place] >= 1.030 H (1.005-1.025) Urine Protein Trace (Neg-Trace) mg/dL Urine Glucose (UA) Negative (Negative) mg/dL Urine Ketones Trace (Negative) mg/dL Urine Blood Moderate (2+) H (Negative) Urine Nitrite Negative (Negative) Ur Leukocyte Esterase Negative (Negative) Urine RBC 11-20 H (0-2) /HPF Urine WBC 0-5 (0-5) /HPF Ur Squamous Epith Cells 0-2 (0-2) /HPF Urine Bacteria None Seen (None Seen) Hyaline Casts 0-2 (0-2) /LPF Radiology Impression Discussion of test interpretation with radiology: I have reviewed the radiologist's reading. Discharge Plan Discharge Clinical Impression: Hematuria Patient Disposition: Home, Self-Care Instructions: Hematuria (ED) Additional Instructions: All of your screening labs were normal with the exception that you are passing blood in your urine. The CT scan of your abdomen and pelvis was normal as well. You need to follow up with the urologist for further testing. I am providing you with a contact. Call tomorrow to make an appointment. Prescriptions: No Action Zyrtec 10 mg capsule 10 mg PO DAILY Qty: 30 0RF prednisone 50 mg tablet 50 mg PO DAILY Qty: 4 0RF famotidine [Pepcid] 40 mg tablet 40 mg PO DAILY Qty: 4 0RF penicillin V potassium 500 mg tablet 500 mg PO TID 10 Days Qty: 30 0RF amoxicillin 500 mg capsule 500 mg PO BID 7 Days Qty: 14 0RF Magic Mouthwash Diphen/Lido/Antacid 1:1:1 240 mL suspension 5 ml PO TID Qty: 240 0RF Rx Instructions: Lidocaine Viscous 2 % 80mL; diphenhydramine 12.5 mg/5 mL 80mL; aluminum-mag hydrox-simeth [id number]/5mL 80mL Swish and spit, do not swallow benzonatate 200 mg capsule 200 mg PO TID PRN (Reason: cough) Qty: 20 0RF cefuroxime axetil 500 mg tablet 500 mg PO BID 7 Days Qty: 14 0RF albuterol sulfate 90 mcg/actuation HFA aerosol inhaler 2 puff inhalation Q6H PRN (Reason: shortness of breath or wheezing) Qty: 8.5 0RF prednisone 20 mg tablet 40 mg PO DAILY Qty: 10 0RF ibuprofen 600 mg tablet 600 mg PO Q6H PRN (Reason: fever or pain) Qty: 30 0RF ibuprofen 400 mg tablet 400 mg PO Q8H PRN (Reason: pain) Qty: 14 0RF Referrals: Juan R Boone MD [Physician, Urology] Referral Note: painless hematuria Stand Alone Forms: Work/School Release Interventions: ED Discharge Assessment Last Done: 06/11/25 00:52 Discharge Date/Time: 06/11/25 00:53 Print Language: Thai
[2025-06-10 19:08] LABS: MANUAL DIFF FLAG NO
[2025-06-10 19:09] LABS: Hematocrit 45.7 % (42.0-52.0); Hemoglobin 15.1 g/dl (14.0-18.0); Imm Gran Abs Auto 0.03 X10*3/uL (0.00-0.03); Imm Gran Pct Auto 0.3 % (0.0-0.4); Lymphocytes Absolute Auto 1.9 X10*3/uL (1.2-4.9); Mean Corpuscular HGB Conc 33.0 g/dl (31.0-36.0); Mean Corpuscular Hemoglobin 27.0 pg (27.0-33.0); Mean Corpuscular Volume 81.6 fL (80.0-98.0); NRBC Abs Auto 0.000 X10*3/uL (0.0-0.012); NRBC Pct Auto 0.0 /100WBC (0.0-0.2); Platelet Count 201 X10*3/uL (160-400); Red Blood Count 5.60 X10*6/uL (4.60-5.80); White Blood Count 8.6 X10*3/uL (4.8-10.8)
[2025-06-10 19:12] LABS: Appearance Urine Clear; Glucose Urine UA Negative (Negative); PH 5.5 (5.0-9.0); Specific Gravity - Urine >= 1.030 (1.005-1.025); UMIC TRIGGER UACC YES
[2025-06-10 19:16] LABS: INTERNATIONAL NORM RATIO 1.0 (0.9-1.1); Prothrombin Time 11.7 SEC (10.9-12.4)
[2025-06-10 19:19] LABS: Partial Thromboplastin Time 34.4 SEC (26.7-34.1)
[2025-06-10 19:26] LABS: Alanine Aminotransferase 109 U/L (0-40); Albumin Level 5.2 g/dL (3.5-5.0); Alkaline Phosphatase 74 U/L (39-117); Anion Gap 11 (12-20); Aspartate Amino Transferase 44 U/L (5-37); Blood Urea Nitrogen 17 mg/dL (9-16); Calcium 9.7 mg/dL (8.4-10.2); Carbon Dioxide 27 mmol/L (22-29); Chloride 109 mmol/L (96-108); Creatinine Clr Calc Pharmacy 105.8; Estimated Glomerular Filt Rate > 60; Potassium 3.6 mmol/L (3.3-5.1); Sodium 143 mmol/L (135-145); Total Protein 7.7 g/dL (6.5-8.0)
[2025-06-10 20:44] VITALS: BP 118/67; PULSE 74; RESP 18; TEMP 37.1; O2SAT 97
--- OUTSIDE RECORDS SUMMARY | 2025-06-10 20:53 | XMS_ITS | Patient Health Record ---
Author Organization [facility] Address [address] [id number] Care Team Providers Care Adolescent Counselor Name Role Phone PAUL NELSON Unavailable [phone] Allergies Allergen (clinical drug ingredient) Drug/Non Drug Allergy documented on EMR Reaction Allergy Type Onset Date Status shrimp allergenic extract Shrimp (Diagnostic) Unknown Drug Allergy Active Results Component Value Reference Range Flag Notes APTIMA COMBO 2 CT/NG, Throat /Pharyngeal Reviewed date:07/27/2024 03:41:15 PM Interpretation:Negative Performing Lab:[facility], [facility] [place], [address] Tristan Gutierrez DO Notes/Report: GONORRHEA, AMPLIFIED NEGATIVE NEGATIVE N CHLAMYDIA, AMPLIFIED NEGATIVE NEGATIVE N DNA Test Results SEX: M : 2000 AGE: 23 [id number] CLINIC ID: [id number] SS: PHYSICIAN: PAUL NELSON CNM COLLECTED BY: [id number] Specimen Source: Throat/Pharyngeal Specimen Type: Swab, Bianca PCR Medium Neisseria gonorrhoeae: NEGATIVE Normal Value: Negative Chlamydia trachomatis: NEGATIVE Normal Value: Negative HBsAg Screen-[id number] Reviewed date:07/12/2024 02:04:41 PM Interpretation:Negative Performing Lab:Lety Mulligan, [address], [address], [place], Phone - [phone], Director - [facility] Notes/Report: HBsAg Screen Negative Negative Hepatitis B Surf Ab Quant-[id number] Reviewed date:07/12/2024 02:04:27 PM Interpretation:Not Immune Performing Lab:[facility], [address], [address], [email or web address], Phone - [phone], Director - [facility] Notes/Report: Hepatitis B Surf Ab Quant <3.5 Immunity>10 mIU/mL L Status of Immunity Anti-HBs Level Inconsistent with Immunity 0.0 - 10.0 Consistent with Immunity >10.0 T pallidum Screening [place] -[id number] Reviewed date:07/12/2024 02:05:10 PM Interpretation:Non-reactive Performing Lab:[facility], [address], [address], [email or web address], Phone - [phone], Director - [facility] Notes/Report: T pallidum Antibodies Non Reactive Non Reactive HIV Ab/p24 Ag with Reflex-[id number] Reviewed date:07/12/2024 02:05:00 PM Interpretation:Non-reactive Performing Lab:[facility] [place], [address], [address], [email or web address], Phone - [phone], Director - [facility] Notes/Report: HIV Ab/p24 Ag Screen Non Reactive Non Reactive HIV-1/HIV-2 antibodies and HIV-1 p24 antigen were NOT detected. There is no laboratory evidence of HIV infection. HIV Negative Ct, Ng, Trich vag by JORGE-[id number] Reviewed date:07/17/2024 12:32:20 PM Interpretation:Negative Performing Lab:[facility], [address], [address], [email or web address], Phone - [phone], Director - [facility] Notes/Report: Chlamydia by JORGE Negative Negative Gonococcus by JORGE Negative Negative Trich vag by JORGE Negative Negative HCV Antibody-[id number] Reviewed date:07/12/2024 02:04:50 PM Interpretation:Non-reactive Performing Lab:[facility] [place], [address], [address], [email or web address], Phone - [phone], Director - [facility] Notes/Report: Hep C Virus Ab Non Reactive Non Reactive HCV antibody alone does not differentiate between previously resolved infection and active infection. Equivocal and Reactive HCV antibody results should be followed up with an HCV RNA test to support the diagnosis of active HCV infection. T pallidum Screening [place] -[id number] Reviewed date:04/04/2025 02:49:27 PM Interpretation:Negative Performing Lab:Lety Oriska, [address], [address], [place], Phone - [phone], Director - [facility] Notes/Report: Clinical Information:SRC:urine T pallidum Antibodies Non Reactive Non Reactive Interpretation: Syphilis: Treponemal Antibodies with Reflex to RPR and RPR Titer, Reverse Screening and Diagnosis Algorithm Treponemal Treponemal Ab RPR, Qn Ab, TPPA Final Interpretation -------- Non N/A N/A No laboratory evidence Reactive of syphilis. Retest in 2-4 weeks if recent exposure is suspected. -------- Reactive Non Non Treponemal antibodies Reactive Reactive not confirmed. Inconclusive for syphilis; potential early syphilis, possible false positive. Retest in 2-4 weeks if recent exposure is suspected. -------- Reactive Non Reactive Treponemal antibodies Reactive detected. Consistent with past or current (potential early) syphilis. -------- Reactive >/=1:1 N/A Treponemal and nontreponemal antibodies detected. Consistent with current or past syphilis. HIV Ab/p24 Ag with Reflex-[id number] Reviewed date:04/04/2025 02:49:18 PM Interpretation:Negative Performing Lab:[facility] [place], [address], [address], [email or web address], Phone - [phone], Director - [facility] Notes/Report: Clinical Information:SRC:urine HIV Ab/p24 Ag Screen Non Reactive Non Reactive HIV-1/HIV-2 antibodies and HIV-1 p24 antigen were NOT detected. There is no laboratory evidence of HIV infection. HIV Negative Ct, Ng, Trich vag by JORGE-[id number] Reviewed date:04/16/2025 08:46:39 AM Interpretation:Negative Performing Lab:[facility], [address], [address], [email or web address], Phone - [phone], Director - [facility] Notes/Report: Clinical Information:SRC:urine Chlamydia by JORGE Negative Negative Gonococcus by JORGE Negative Negative Trich vag by JORGE Negative Negative Ct/GC JORGE, Pharyngeal-[id number] Reviewed date:04/16/2025 08:46:52 AM Interpretation:Negative Performing Lab:[facility] [place], [address], [address], [email or web address], Phone - [phone], Director - [facility] Notes/Report: Clinical Information:SRC:urine C. trachomatis, JORGE, Pharyn Negative Negative N. gonorrhoeae, JORGE, Pharyn Negative Negative Reason For Referral No Information Social History Sex Assigned At : Social History Observation Description Sex Assigned At Male Social History HIV Risk Assessment Social Info Question Answer Notes Additional Questions Is an HIV Risk Assessment being c onducted? Yes Have you been tested for HIV before? Yes Did you have a blood transfusion prior to 1985? No Do you have an unlicensed body piercing or tattoo? No Reproductive Life Plan: Social Info Question Answer Notes Reproductive Life Plan: Do you want to have children? Not sure Human Trafficking: Social Info Question Answer Notes Human Trafficking Experienced: No PrEP for HIV: Social Info Question Answer Notes PrEP for HIV Is the client intere sted in beginning/continuing PrEP for HIV? No Sexual History: Social Info Question Answer Notes Sexual History: Sexual History Reviewed: Partner s, Practices, Protection/Past STIs Currently sexually active? Yes Sexually active with: Women Number of female partners 1 Your sexual activities include: oral intercourse, vaginal intercourse Client rarely has oral Ic Do you use condoms? No Date of last unprotected intercourse: 03/29/2025 Number of partners in past 3 months: 1 Number of partners in past year: 1 Does your partner(s) currently have any STIs? No Counseling Provided: Social Info Question Answer Notes Counseling Provided Please indicate the length of time, in minutes, that counseling was provided. 6 Counseling Was Provided By: jagruti Drugs/Alcohol: Social Info Question Answer Notes Drug/Alcohol Use Do you or have you used drugs? No Per client Do you or have you used alcohol? No Per client Food Access: Social Info Question Answer Notes Food Access The Client's current access to food is Secure Food Access Relationships: Social Info Question Answer Notes Relationships Has the client exper ienced any of the following: Client has never experienced harmful relationships Housing Social Info Question Answer Notes Housing The client's current living situation is: stable housing Tobacco Use: Social Info Question Answer Notes Tobacco Use: Do you/have you used tobacco? No Per client Tobacco Smoking Status Unknown if ever smoked Section Notes: Aptima/ bw Vital Signs Blood pressure diastolic 70 mm Hg 04/03/2025 Height 5'1 in 04/03/2025 Blood pressure systolic 116 mm Hg 04/03/2025 Weight 147.0 lbs 04/03/2025 BMI 27.77 kg/m2 04/03/2025 Encounters Encounter Location Date Provider Diagnosis [address] [id number] 07/11/2024 PAUL NELSON Encounter for scre ening for infections with a predominantly sexual mode of transmission Z11.3 ; Counseling, unspecified Z71.9 ; Other problems related to lifestyle Z72.89 ; HIV Screening Z11.4 and Encounter for screening for other viral diseases Z11.[address] [id number] 04/03/2025 PAUL NELSON Encounter for scre ening for infections with a predominantly sexual mode of transmission Z11.3 ; Counseling, unspecified Z71.9 ; Other problems related to lifestyle Z72.89 and HIV Screening Z11.4 Assessments Encounter Date Diagnosis (ICD Code) Assessment Notes Treatment Notes Treatment Clinical Notes Section Notes 07/11/2024 Encounter for screening for infections with a predominantly sexual mode of transmission (ICD-10 - Z11.3) Discussed STI risks, screenings that are available through [facility] and safe sex. For Hep B and C screening today. Clt aware of lab processing times and how to view results on portal and how positive results will be communicated Need 2 out of 3 Sections from A-C Section A) Problems (only need one from below) One acute or uncomplicated illness/injury Section B) Data (at least one of the following categories in this section) Category 1: (Choose 2 of the following): Order unique tests Section C) Risk Document low risk of morbidity/mortal ity 04/03/2025 Encounter for screening for infections with a predominantly sexual mode of transmission (ICD-10 - Z11.3) Discussed STI risks, screenings that are available through [facility] and safe sex. Clt aware of lab processing times and how to view results on portal and how positive results will be communicated Need 2 out of 3 Sections from A-C Section A) Problems (only need one from below) One acute or uncomplicated illness/injury Section B) Data (at least one of the following categories in this section) Category 1: (Choose 2 of the following): Order unique tests Section C) Risk Document low risk of morbidity/mortal ity 04/03/2025 Counseling, unspecified (ICD-10 - Z71.9) Instructed clt to get tongue evaluated by dentist or PCP Need 2 out of 3 Sections from A-C Section A) Problems (only need one from below) One acute or uncomplicated illness/injury Section B) Data (at least one of the following categories in this section) Category 1: (Choose 2 of the following): Order unique tests Section C) Risk Document low risk of morbidity/mortal ity 07/11/2024 Counseling, unspecified (ICD-10 - Z71.9) Need 2 out of 3 Sections from A-C Section A) Problems (only need one from below) One acute or uncomplicated illness/injury Section B) Data (at least one of the following categories in this section) Category 1: (Choose 2 of the following): Order unique tests Section C) Risk Document low risk of morbidity/mortal ity 07/11/2024 Other problems related to lifestyle (ICD-10 - Z72.89) Need 2 out of 3 Sections from A-C Section A) Problems (only need one from below) One acute or uncomplicated illness/injury Section B) Data (at least one of the following categories in this section) Category 1: (Choose 2 of the following): Order unique tests Section C) Risk Document low risk of morbidity/mortal ity 04/03/2025 Other problems related to lifestyle (ICD-10 - Z72.89) Need 2 out of 3 Sections from A-C Section A) Problems (only need one from below) One acute or uncomplicated illness/injury Section B) Data (at least one of the following categories in this section) Category 1: (Choose 2 of the following): Order unique tests Section C) Risk Document low risk of morbidity/mortal ity 04/03/2025 HIV Screening (ICD-10 - Z11.4) Need 2 out of 3 Sections from A-C Section A) Problems (only need one from below) One acute or uncomplicated illness/injury Section B) Data (at least one of the following categories in this section) Category 1: (Choose 2 of the following): Order unique tests Section C) Risk Document low risk of morbidity/mortal ity 07/11/2024 HIV Screening (ICD-10 - Z11.4) Need 2 out of 3 Sections from A-C Section A) Problems (only need one from below) One acute or uncomplicated illness/injury Section B) Data (at least one of the following categories in this section) Category 1: (Choose 2 of the following): Order unique tests Section C) Risk Document low risk of morbidity/mortal ity 07/11/2024 Encounter for screening for other viral diseases (ICD-10 - Z11.59) Need 2 out of 3 Sections from A-C Section A) Problems (only need one from below) One acute or uncomplicated illness/injury Section B) Data (at least one of the following categories in this section) Category 1: (Choose 2 of the following): Order unique tests Section C) Risk Document low risk of morbidity/mortal ity 07/11/2024 Other Reviewed clt's concerns for tongue symptoms. Nothing on exam today. Advised to have sxs evaluated by PCP or dentist when symptoms are active. Will rule out syphilis with testing todaybut symptoms don't sound consistent with that. Herpes is usually external around lips but could consider PCR swab to further evaluate that during active symptoms Need 2 out of 3 Sections from A-C Section A) Problems (only need one from below) One acute or uncomplicated illness/injury Section B) Data (at least one of the following categories in this section) Category 1: (Choose 2 of the following): Order unique tests Section C) Risk Document low risk of morbidity/mortal ity Plan Of Treatment No Information Insurance Providers Payer Name Payer Address Payer Phone Subscriber Number Group Number Insured Name Patient Relationship to Insured Coverage Start Date Coverage End Date [place] ATT [place]S [address] [place] [address] [id number] [id number] [place] Self - patient is the insured Medical (General) History Medical History History ICD Code Asthma
--- NOTE | 2025-06-10 21:39 | PC.NURSE ---
Assumed care of pt , presents with hematuria, pt was told to come to the ED at there was blood found in his urine after a urine screening for employment. aaox4, nad, denies painful urination and abdominal symptomes
[2025-06-10 22:26] VITALS: BP 107/57; PULSE 67; RESP 18; TEMP 36.8; O2SAT 97
[2025-06-11 00:52] VITALS: BP 107/57; PULSE 67; RESP 18; TEMP 36.8; O2SAT 97
== END 2025-06-11 00:53 | disposition home or self-care (01) ==
PROVIDERS: Physician Assistant; Emergency Provider Emergency Medicine
DX: R31.9 Hematuria, unspecified (principal)
CPT/HCPCS: 36415; 74176; 80053; 81001; 85025; 85610; 85730; 99284

== ENCOUNTER → 2025-06-10 21:39 | Outpatient (BNV) | payer MEDICAID, SELFPAY | PROVIDERS: Visit Provider Radiology Diagnostic Radiology | DX: N20.1 Calculus of ureter (principal); R31.29 Other microscopic hematuria | CPT/HCPCS: 74176 ==

== ENCOUNTER 2025-07-10 10:48 | Outpatient (AMB) | payer MEDICAID, SELFPAY ==
--- OUTSIDE RECORDS SUMMARY | 2025-03-27 07:15 | XMS_ITS ---
Author Organization [facility] Address [address] [place] [id number] Care Team Providers Care Fresh Meat Grader Name Role Phone PAUL NELSON Unavailable [phone] REASON FOR VISIT Counseling/Testing Social History Sex Assigned At : Social History Observation Description Sex Assigned At Male Encounters Encounter Location Date Provider Diagnosis [facility] [address] [place], [place] [id number] PAUL NELSON Plan Of Treatment No Information Progress Notes * Hu LANGLEY GDOB: 9 (24 yo M)Acc No.[id number]:03/27/2025 Progress Notes Patient: Traci harrisHu Provider: Kenji NELSON :2000 A ge:24 Y S ex:Male Date:03/27/2025 Address:[address] [place], [place] [id number] Subjective: * Chief Complaints: * C ounseling/Testing Billing Information: * Procedure Codes: * Electronic signature of JEANNIE NELSON CNM on 07/10/2025 at 12:24 PM EDT Sign off status: Pending * Provider: Kenji NELSON Date: 0 03/27/2025 Generated for Keren cisse/Priyank/Aruna on: 1 12:24 PM EDT
--- NOTE | 2025-07-10 10:49 | A.OFFVIS_ITS ---
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 Three plus today persistent Imaging complete - CT 07/04 NAD Recommend [facility] Medical History Asthma Social History Alcohol intake: never Review of Systems Const Denies chills and Denies fever(s) Card Reports no additional complaints and Denies syncope Resp Denies cough GI Denies abdominal pain and Denies heartburn Reports as per HPI and Denies change in libido Neuro Denies syncope Psych Denies change in libido Endo Denies change in libido Physical Exam Const General: cooperative, healthy appearing, comfortable and no acute distress Orientation/consciousness: patient oriented x3 HEENT Face and sinus: Yes normal facial exam Mouth: moist mucous membranes Neck Neck: Yes normal visual inspection, Yes full ROM and Yes trachea midline Chest Chest palpation & inspection: normal inspection of the chest Resp Effort & Inspection: normal respiratory effort, able to speak in complete sentences and no respiratory distress GI Inspection: Yes normal to inspection Back/Spine/Pelvis Cervical Spine: normal cervical lordosis Thoracic/Lumbar Spine: thoracic and lumbar spine normal to inspection Skin General skin exam: no rashes or lesions noted Neuro General: patient oriented x3, gait normal, tone normal and moves all extremities Extrem General: Yes normal to inspection and Yes capillary refill normal Results AMB Urinalysis, Automated UA Leukoctes 0 Jem/uL Last Edit by Joy Dumont MA on 07/10/25 12:49 UA Nitrite Negative Last Edit by Joy Dumont MA on 07/10/25 12:49 UA Urobilinogen 0.2 mg/dL Last Edit by Joy Dumont MA on 07/10/25 12:49 UA Protein 15 mg/dL Last Edit by Joy Dumont MA on 07/10/25 12:49 UA pH 6.0 Last Edit by Joy Dumont MA on 07/10/25 12:49 UA Blood 200 Javon/uL Last Edit by Joy Dumont MA on 07/10/25 12:49 UA Specific Leoti 1.025 Last Edit by Joy Dumont MA on 07/10/25 12:49 UA Ketone Negative Last Edit by Joy Dumont MA on 07/10/25 12:49 UA Bilirubin 0 mg/dL Last Edit by Joy Dumont MA on 07/10/25 12:49 UA Glucose 0 mg/dL Last Edit by Joy Dumont MA on 07/10/25 12:49 Results Reviewed Results Reviewed: Laboratory Last Values Urine pH (Auto) 6.0 07/10/25 12:03 Specific Leoti (Auto) 1.025 07/10/25 12:03 Urine Protein (Auto) 15 mg/dL 07/10/25 12:03 Glucose (UA)(Auto) 0 mg/dL 07/10/25 12:03 Urine Ketones (Auto) Negative 07/10/25 12:03 Urine Blood (Auto) 200 Javon/uL 07/10/25 12:03 Urine Nitrite (Auto) Negative 07/10/25 12:03 Urine Bilirubin (Auto) 0 mg/dL 07/10/25 12:03 Urine Urobilinogen (Auto) 0.2 mg/dL 07/10/25 12:03 Leukocyte Esterase (Auto) 0 Jme/uL 07/10/25 12:03 Assessment & Plan Assessment & Plan (1) Microscopic hematuria: Code(s): R31.29 - Other microscopic hematuria Category: Medical Plan Check cystoscopy office Orders: Orders AMB Urinalysis Automated Today Juan R Boone MD Z13.9 - Encounter for screening, unspecified Urine Cytology Today Juan R Boone MD R31.29 - Other microscopic hematuria Medications: Discontinued prednisone Discontinued Reason: Patient Completed Course 50 mg PO DAILY 4 tabs 0RF famotidine (Pepcid) Discontinued Reason: Patient Completed Course 40 mg PO DAILY 4 tabs 0RF penicillin V potassium Discontinued Reason: Patient Completed Course 500 mg PO TID 10 days 30 tabs 0RF amoxicillin Discontinued Reason: Patient Completed Course 500 mg PO BID 7 days 14 caps 0RF Magic Mouthwash Diphen/Lido/Antacid 1:1:1 Lidocaine Viscous 2 % 80mL; diphenhydramine 12.5 mg/5 mL 80mL; aluminum-mag hydrox-simeth [id number]/5mL 80mL Swish and spit, do not swallow Discontinued Reason: Patient Completed Course 5 mL PO TID 240 mL 0RF Joy Colon, MA ibuprofen Discontinued Reason: Patient Completed Course 400 mg PO Q8H PRN 14 tabs 0RF pain albuterol sulfate 90 mcg/actuation Discontinued Reason: Patient Completed Course 2 puffs inhalation Q6H PRN 8.5 grams 0RF shortness of breath or wheezing cefuroxime axetil Discontinued Reason: Patient Completed Course 500 mg PO BID 7 days 14 tabs 0RF prednisone Discontinued Reason: Patient Completed Course 40 mg (2 x 20 mg) PO DAILY 10 tabs 0RF benzonatate Discontinued Reason: Patient Completed Course 200 mg PO TID PRN 20 caps 0RF cough Patient Instructions: This note is constructed using voice recognition software. While every effort has been made to ensure accuracy nurse transplant errors may have been included. Imaging studies, laboratory and physical exam results were discussed and reviewed in detail. No major barriers to patient understanding were identified. An opportunity to ask questions regarding the treatment plan was provided. All questions were answered. The patient expressed understanding and agreement with the above treatment plan. The patient is aware they should contact our office by phone for worsening of their current condition or the appearance of new urologic symptoms. Compliance is encouraged with any medications and followup testing that is ordered. It is a privilege to participate in the urologic care of your patient. If you have any questions or concerns regarding treatment for the above conditions, or other urologic issues, please do not hesitate to contact me. The office telephone contact is [phone]. Sincerely, Dr Juan R Boone MD, [facility] - Urology Compassionate Specialist Care for the Genitourinary System Coding Level of Care Code New Pt Level 3 (41570) Diagnoses Microscopic hematuria R31.29
--- OUTSIDE RECORDS SUMMARY | 2025-07-10 12:25 | XMS_ITS | Patient Health Record ---
[facility] Organization [facility] Address [address] [id number] Care Team Providers Care Surgical Instrument Maker Name Role Phone PAUL NELSON Unavailable [phone] Allergies Allergen (clinical drug ingredient) Drug/Non Drug Allergy documented on EMR Reaction Allergy Type Onset Date Status shrimp allergenic extract Shrimp (Diagnostic) Unknown Drug Allergy Active Results Component Value Reference Range Flag Notes APTIMA COMBO 2 CT/NG, Throat /Pharyngeal Reviewed date:07/27/2024 03:41:15 PM Interpretation:Negative Performing Lab:[facility], [facility] [place], [address] Tristan Gutierrez DO Notes/Report: GONORRHEA, AMPLIFIED NEGATIVE NEGATIVE N CHLAMYDIA, AMPLIFIED NEGATIVE NEGATIVE N DNA Test Results SEX: M : 2000 AGE: 23 [id number] CLINIC ID: [id number] SS: PHYSICIAN: PAUL NELSON CNM COLLECTED BY: [id number] Specimen Source: Throat/Pharyngeal Specimen Type: Swab, Bianca PCR Medium Neisseria gonorrhoeae: NEGATIVE Normal Value: Negative Chlamydia trachomatis: NEGATIVE Normal Value: Negative HBsAg Screen-[id number] Reviewed date:07/12/2024 02:04:41 PM Interpretation:Negative Performing Lab:Lety Mulligan, [address], [address], [place], Phone - [phone], Director - [facility] Notes/Report: HBsAg Screen Negative Negative Hepatitis B Surf Ab Quant-[id number] Reviewed date:07/12/2024 02:04:27 PM Interpretation:Not Immune Performing Lab:[facility], [address], [address], [employer], Phone - [phone], Director - [facility] Notes/Report: Hepatitis B Surf Ab Quant <3.5 Immunity>10 mIU/mL L Status of Immunity Anti-HBs Level Inconsistent with Immunity 0.0 - 10.0 Consistent with Immunity >10.0 T pallidum Screening [place] -[id number] Reviewed date:07/12/2024 02:05:10 PM Interpretation:Non-reactive Performing Lab:[facility], [address], [address], [employer], Phone - [phone], Director - [facility] Notes/Report: T pallidum Antibodies Non Reactive Non Reactive HIV Ab/p24 Ag with Reflex-[id number] Reviewed date:07/12/2024 02:05:00 PM Interpretation:Non-reactive Performing Lab:[facility] [place], [address], [address], [employer], Phone - [phone], Director - [facility] Notes/Report: HIV Ab/p24 Ag Screen Non Reactive Non Reactive HIV-1/HIV-2 antibodies and HIV-1 p24 antigen were NOT detected. There is no laboratory evidence of HIV infection. HIV Negative Ct, Ng, Trich vag by [id number] Reviewed date:07/17/2024 12:32:20 PM Interpretation:Negative Performing Lab:[facility], [address], [address], [employer], Phone - [phone], [facility] - [facility] Notes/Report: Chlamydia by JORGE Negative Negative Gonococcus by JORGE Negative Negative Trich vag by JORGE Negative Negative HCV Antibody-[id number] Reviewed date:07/12/2024 02:04:50 PM Interpretation:Non-reactive Performing Lab:[facility] [place], [address], [address], [employer], Phone - [phone], Director - [facility] Notes/Report: Hep C Virus Ab Non Reactive Non Reactive HCV antibody alone does not differentiate between previously resolved infection and active infection. Equivocal and Reactive HCV antibody results should be followed up with an HCV RNA test to support the diagnosis of active HCV infection. T pallidum Screening [place] -[id number] Reviewed date:04/04/2025 02:49:27 PM Interpretation:Negative Performing Lab:Lety Wagener, [address], [address], [place], Phone - [phone], Director - [facility] Notes/Report: Clinical Information:SRC:urine T pallidum Antibodies Non [...] Performing Lab:[facility] [place], [address], [address], [employer], Phone - [phone], Director - [facility] Notes/Report: Clinical Information:SRC:urine HIV Ab/p24 Ag Screen Non Reactive Non Reactive HIV-1/HIV-2 antibodies and HIV-1 p24 antigen were NOT detected. There is no laboratory evidence of HIV infection. HIV Negative Ct, Ng, Trich vag by [id number] Reviewed date:04/16/2025 08:46:39 AM Interpretation:Negative Performing Lab:[facility], [address], [address], [employer], Phone - [phone], Director - [facility] Notes/Report: Clinical Information:SRC:urine Chlamydia by JORGE Negative Negative Gonococcus by JORGE Negative Negative Trich vag by JORGE Negative Negative Ct/GC JORGE, Pharyngeal-[id number] Reviewed date:04/16/2025 08:46:52 AM Interpretation:Negative Performing Lab:[facility] [place], [address], [address], [employer], Phone - [phone], [facility] - [facility] Notes/Report: Clinical Information:SRC:urine C. trachomatis, JORGE, Pharyn [...] 04/03/2025 Encounters Encounter Location Date Provider Diagnosis [address] [id number] 07/11/2024 PAUL NELSON Encounter for scre ening for infections with a predominantly sexual mode of transmission Z11.3 ; Counseling, unspecified Z71.9 ; Other problems related to lifestyle Z72.89 ; HIV Screening Z11.4 and Encounter for screening for other viral diseases Z11.[address] [id number] 04/03/2025 PAUL NELSON Encounter for scre ening [...] Insured Coverage Start Date Coverage End Date [place] [address] [place] [address] [id number] Hu Langley Self - patient is the insured Medical (General) History Medical History History ICD Code Asthma
== END 2025-07-10 11:39 | disposition home or self-care (01) ==
LOC: HO.HUSH 10:49
PROVIDERS: Visit Provider Urology
DX: Z13.9 Encounter for screening, unspecified (principal); R31.29 Other microscopic hematuria
CPT/HCPCS: 99203

== ENCOUNTER 2025-07-10 10:48 | Outpatient (REF) | payer MEDICAID, SELFPAY ==
--- OUTSIDE RECORDS SUMMARY | 2017-06-17 06:20 | XMS_ITS | Continuity of Care Document ---
Author Organization David Mantilla [facility] Address [address] [facility] [address] [place] [address] Phone Care Team Providers Care Dance Instructor Name Role Phone Unavailable Unavailable Unavailable Allergies, Adverse Reactions, Alerts Substance Reaction Status Criticality No Known Allergies Active No Inform ation Procedures Procedure Date PREV VISIT, NEW, AGE 18-39 Results Test Name Date and Time Measure Units Reference Range Abnormal Flag Status Comments Panel Description: CBC WITH DIFF: 0908:H [id number] OrderCompl eted CBC WITH DIFF: WBC 14:31:00 [...] () Panel Description: MAIKEL ASHLI METABOLIC PANEL: 0908:[id number] OrderCompl eted COMP: BLOOD SUGAR 15:33:00 75 [...] ed REFERENCE RANGE LESS THAN 200 mg/dL XYWCTQLZWX764- 240 mg/dL BORDERLINE HIGHGREATER THAN 240 mg/dL HIGHPerformed by:Main [facility] (ML) (ML) JEANMARIE: TRIGLYCERI DE 15:33:00 45 mg/dL -149 OrderComplet ed REFERENCE RANGE <150 mg/dL Emjebh012-793 mg/dL Borderline Nmgw154-734 mg/dL High >=500 mg/dL Very HighPerformed by:Main [facility] (ML) (ML) JEANMARIE: HIGH DENSITY LIPIDS 15:33:00 45 mg/dL 40-59 OrderComplet ed REFERENCE RANGE LESS THAN 40 MG/DL LOWGREATER THAN OR EQUAL TO 60 MG/DL HIGHPerformed by:Main [facility] (ML) (ML) JEANMARIE: LOW DENSITY LIPIDS CALCULATED 15:33:00 76 mg/dL 1-99 OrderComplet ed REFERENCE RANGE LESS THAN 100 MG/DL COGVHMW171-657 MG/DL NEAR/ABOVE PFUNNTI760-306 MG/DL BORDERLINE EOXR429-671 MG/DL HIGHGREATER THAN OR EQUAL TO 190 MG/DL VERY HIGHPerformed by:Main [facility] (ML) (ML) JEANMARIE: CHOL/HDL RATIO 15:33:00 2.9 OrderComplet ed Performed by:[facility] (ML) (ML) Panel Description: TSH: 0908:[id number] O rderCompl eted TSH 15:33:00 0.671 uIU/mL 0.463-3.98 OrderComplet ed Performed by:[facility] (ML) (ML) Panel Description: CELENAEN SILVANAE METABOLIC PANEL: 0908:[id number] OrderCompl eted COMP: BLOOD SUGAR 15:33:00 75 [...] ed REFERENCE RANGE LESS THAN 200 mg/dL LVYUXIXWTO482- 240 mg/dL BORDERLINE HIGHGREATER THAN 240 mg/dL HIGHPerformed by:Main [facility] (ML) (ML) JEANMARIE: TRIGLYCERI DE 15:33:00 45 mg/dL -149 OrderComplet ed REFERENCE RANGE <150 mg/dL Ibuwci703-434 mg/dL Borderline Eghk979-283 mg/dL High >=500 mg/dL Very HighPerformed by:Main [facility] (ML) (ML) JEANMARIE: HIGH DENSITY LIPIDS 15:33:00 45 mg/dL 40-59 OrderComplet ed REFERENCE RANGE LESS THAN 40 MG/DL LOWGREATER THAN OR EQUAL TO 60 MG/DL HIGHPerformed by:Main [facility] (ML) (ML) JEANMARIE: LOW DENSITY LIPIDS CALCULATED 15:33:00 76 mg/dL 1-99 OrderComplet ed REFERENCE RANGE LESS THAN 100 MG/DL AYOSCUN536-90 9 MG/DL NEAR/ABOVE SMRBCCU436-102 MG/DL BORDERLINE VNSF671-114 MG/DL HIGHGREATER THAN OR EQUAL TO 190 MG/DL VERY HIGHPerformed by:Main LAB (ML) (ML) JEANMARIE: CHOL/HDL RATIO 15:33:00 2.9 OrderComplet ed Performed by:[facility] (ML) (ML) Panel Description: TSH: 0908:[id number] O rderCompl eted TSH 15:33:00 0.671 uIU/mL 0.463-3.98 OrderComplet ed Performed by:[facility] (ML) () Panel Description: HGB A1C: 0908:[id number] OrderCompl eted HGB A1C: HGB A1C 16:04:00 5.2 % < 5.7 OrderComplet ed Normal range: < 5.7%Increased risk for Diabetes: 5.7%-6.4%Diabe liliana: > or = 6.5%Diabetic Therapeutic Goal: < 7.0%Reevaluate Therapy: > 8.0% Reference range is from guidelines of the 2010 ADA([place] Diabetes Association).P erformed by:[facility] ([facility]) HGB A1C: EST AVERAGE GLUCOSE Sep-08-201 7 16:04:00 103 mg/dL OrderComplet ed Performed by:[facility] ([facility]) Panel Description: HIV 1/2 COMBO: 0908:C [id number] OrderCompl eted HIV 1/2 COMBO 7 16:20:00 NON-REACTIVE NON-REACTIVE OrderComplet ed Negative for HIV-1 & HIV-2 antibodies and p24 Antigen NEW HIV TEST 4TH GENERATION IN USE Oct,Performed by:[facility] (ML) (ML) Panel Description: RPR: [id number] O rderCompl eted RPR 08:28:00 NONREACTIVE NONREACTIVE OrderComplet ed Performed by:[facility] (ML) (ML) Panel Description: GENPROBE APTIMA GC/CH HILARIO: 0908:[id number] OrderCompl eted GENPROBE APTIMA: GENPROBE APTIMA CHLAMYDIA 7 14:28:00 Negative NEGATIVE OrderComplet ed Performed by:[facility] (ML) (ML) GENPROBE APTIMA: GENPROBE APTIMA GC 7 14:28:00 Negative NEGATIVE OrderComplet ed Performed by:[facility] (ML) (ML) Panel Description: HEP C ANTIBODY: 0908: [id number] OrderCompl eted HEP C ANTIBODY 14:31:00 NON-REACTIVE NON-REACT OrderComplet ed Performed by:[facility] (ML) (ML) Advance Directives Directive Yes / No Effective Date File Name No Information Encounters Encounter Description Practice Location Reason(s) For Visit Diagnoses Date Provider Providers Copied on Encounter PREV VISIT, NEW, AGE 18-39 David Burrell [facility], [address] [place] [address],[address], [place], [place], [id number], [place] tel:[phone] [facility] preventive exam (chief complaint) Encntr for [...] testicular Payers Payer name Insurance type Covered constitution party ID Marilyn miranda(s) [facility] [id number] Social History Type Description Quantity Date Captured [...] Mental Status Date Cognitive Assessment Orientation - [place] ed to time, place, person, situation. Patient Care Teams Name Effective Dates (start - stop) Status Members No Information
== END 2025-07-10 10:49 | disposition home or self-care (01) ==
LOC: HO.LNP 10:48
PROVIDERS: Visit Provider Urology
DX: R31.29 Other microscopic hematuria (principal); Z13.89 Encounter for screening for other disorder
CPT/HCPCS: 81003; 88112; 99202

== ENCOUNTER 2025-08-17 01:44 | Emergency (ER) | payer MEDICAID, SELFPAY ==
--- OUTSIDE RECORDS SUMMARY | 2017-06-17 05:20 | XMS_ITS | Continuity of Care Document ---
Author Organization [facility] Mantilla [facility] Address [address] [place] [address] Phone Care Team Providers Care Athletic Shoe Designer Name Role Phone Unavailable Unavailable Unavailable Allergies, Adverse Reactions, Alerts Substance Reaction Status Criticality No Known Allergies Active No Inform ation Procedures Procedure Date PREV VISIT, NEW, AGE 18-39 Results Test Name Date and Time Measure Units Reference Range Abnormal Flag Status Comments Panel Description: CBC WITH DIFF: 0908:H [id number] OrderCompl eted CBC WITH DIFF: WBC 14:31:00 5.7 10*3/u L 4.0-11.0 OrderComplet ed Performed by:[facility] (ML) (ML) CBC WITH DIFF: RBC 14:31:00 5.72 10*6/u L 4.2-6.0 OrderComplet ed Performed by:[facility] (ML) (ML) CBC WITH DIFF: HEMOGLOBIN 14:31:00 15.5 g/dL 13.0-18.0 OrderComplet ed Performed by:[facility] (ML) (ML) CBC WITH DIFF: HEMATOCRIT 14:31:00 47.6 % 39-54 OrderComplet ed Performed by:[facility] (ML) (ML) CBC WITH DIFF: MEAN CELL VOLUME 14:31:00 83.2 fl 80-96 OrderComplet ed Performed by:[facility] (ML) (ML) CBC WITH DIFF: MEAN CELL HGB 14:31:00 27.1 pg 27-31 OrderComplet ed Performed by:[facility] (ML) (ML) CBC WITH DIFF: MEAN CELL HGB CONC 14:31:00 32.6 g/dL 32-36 OrderComplet ed Performed by:[facility] (ML) (ML) CBC WITH DIFF: RDW-CV 14:31:00 12.9 % 12.8-18.4 OrderComplet ed Performed by:[facility] (ML) (ML) CBC WITH DIFF: PLATELET COUNT 14:31:00 171 10*3/u L 140-400 OrderComplet ed Performed by:[facility] (ML) (ML) CBC WITH DIFF: MPV 14:31:00 10.9 fl 8.0-12.0 OrderComplet ed Performed by:[facility] (ML) (ML) DIFFERENTI AL: POLYS 14:31:00 65.8 % 50-70 OrderComplet ed Performed by:[facility] (ML) (ML) DIFFERENTI AL: LYMPHS 14:31:00 24.3 % 25-45 L OrderComplet ed Performed by:[facility] (ML) (ML) DIFFERENTI AL: MONOS 14:31:00 5.9 % 4-13 OrderComplet ed Performed by:[facility] (ML) (ML) DIFFERENTI AL: EOSINOPHIL S 14:31:00 3.5 % 0-5 OrderComplet ed Performed by:[facility] (ML) (ML) DIFFERENTI AL: BASOPHILS 14:31:00 0.3 % 0-2 OrderComplet ed Performed by:[facility] (ML) (ML) DIFFERENTI AL: IMM GRAN 14:31:00 0.2 % 0.0-0.5 OrderComplet ed Performed by:[facility] (ML) (ML) NRBC% 14:31:00 0.0 /100 WBC 0.0-0.2 OrderComplet ed Performed by:[facility] (ML) (ML) NRBC # 14:31:00 0.00 10*3/u L 0.0-0.012 OrderComplet ed Performed by:[facility] (ML) (ML) ABSOLUTE COUNT: ABSOLUTE NE # 7 14:31:00 3.76 10*3/u L 2.2-4.8 OrderComplet ed Performed by:[facility] (ML) (ML) ABSOLUTE COUNT: ABSOLUTE LY # 7 14:31:00 1.39 10*3/u L 1.3-2.9 OrderComplet ed Performed by:[facility] (ML) (ML) ABSOLUTE COUNT: ABSOLUTE MO # 7 14:31:00 0.34 10*3/u L 0.3-0.8 OrderComplet ed Performed by:[facility] (ML) (ML) ABSOLUTE COUNT: ABSOLUTE EO # 7 14:31:00 0.2 10*3/u L 0.0-0.2 OrderComplet ed Performed by:[facility] (ML) (ML) ABSOLUTE COUNT: ABSOLUTE BA # 7 14:31:00 0.02 10*3/u L 0.0-0.1 OrderComplet ed Performed by:[facility] (ML) (ML) ABSOLUTE COUNT: ABSOLUTE IG # 7 14:31:00 0.01 10*3/u L 0.00-0.08 OrderComplet ed Performed by:[facility] (ML) () Panel Description: MAIKEL ASHLI METABOLIC PANEL: 0908:[id number] OrderCompl eted COMP: BLOOD SUGAR 15:33:00 75 mg/dL 70-106 OrderComplet ed Performed by:[facility] (ML) (ML) COMP: BLOOD UREA NITROGEN 15:33:00 11 mg/dL 9-23 OrderComplet ed Performed by:[facility] (ML) (ML) COMP: CALCIUM 15:33:00 9.2 mg/dL 8.5-10.1 OrderComplet ed Performed by:[facility] (ML) (ML) CREATININE 15:33:00 0.76 mg/dL 0.55-1.30 OrderComplet ed Performed by:[facility] (ML) (ML) ALBUMIN 15:33:00 4.4 g/dL 3.4-5.0 OrderComplet ed Performed by:[facility] (ML) (ML) TOTAL PROTEIN 15:33:00 7.6 g/dL 6.4-8.2 OrderComplet ed Performed by:[facility] (ML) (ML) ALKALINE PHOSPHATAS E 7 15:33:00 82 IU/L 52-200 OrderComplet ed Performed by:[facility] (ML) (ML) AST 7 15:33:00 23 U/L 15-37 OrderComplet ed Performed by:[facility] (ML) (ML) ALT 15:33:00 42 U/L 12-78 OrderComplet ed Performed by:[facility] (ML) (ML) TOTAL BILIRUBIN 15:33:00 0.8 mg/dL 0.2-1.0 OrderComplet ed Performed by:[facility] (ML) (ML) SODIUM 15:33:00 141 mmol/L 136-145 OrderComplet ed Performed by:[facility] (ML) (ML) POTASSIUM 7 15:33:00 4.0 mmol/L 3.5-5.1 OrderComplet ed Performed by:[facility] (ML) (ML) CHLORIDE 7 15:33:00 104 mmol/L 98-107 OrderComplet ed Performed by:[facility] (ML) (ML) CARBON DIOXIDE 15:33:00 26 mmol/L 21-32 OrderComplet ed Performed by:[facility] (ML) (ML) ANION GAP 15:33:00 11 mmol/L 3-11 OrderComplet ed Performed by:[facility] (ML) (ML) Panel Description: LIPID PANEL: 0908:[id number] OrderCompl eted JEANMARIE: CHOLESTERO L 15:33:00 130 mg/dL -199 OrderComplet ed REFERENCE RANGE LESS THAN 200 mg/dL IEBFCPOCYB928- 240 mg/dL BORDERLINE HIGHGREATER THAN 240 mg/dL HIGHPerformed by:Main [facility] (ML) (ML) JEANMARIE: TRIGLYCERI DE 15:33:00 45 mg/dL -149 OrderComplet ed REFERENCE RANGE <150 mg/dL Owyirs570-358 mg/dL Borderline Ymkp147-312 mg/dL High >=500 mg/dL Very HighPerformed by:[facility] (ML) (ML) JEANMARIE: HIGH DENSITY LIPIDS 15:33:00 45 mg/dL 40-59 OrderComplet ed REFERENCE RANGE LESS THAN 40 MG/DL LOWGREATER THAN OR EQUAL TO 60 MG/DL HIGHPerformed by:[facility] (ML) (ML) JEANMARIE: LOW DENSITY LIPIDS CALCULATED 15:33:00 76 mg/dL 1-99 OrderComplet ed REFERENCE RANGE LESS THAN 100 MG/DL BDERAYD256-057 MG/DL NEAR/ABOVE AYRXPTH424-292 MG/DL BORDERLINE MQTY314-615 MG/DL HIGHGREATER THAN OR EQUAL TO 190 MG/DL VERY HIGHPerformed by:[facility] (ML) (ML) JEANMARIE: CHOL/HDL RATIO 15:33:00 2.9 OrderComplet ed Performed by:[facility] (ML) (ML) Panel Description: TSH: [id number] O rderCompl eted TSH 15:33:00 0.671 uIU/mL 0.463-3.98 OrderComplet ed Performed by:[facility] (ML) (ML) Panel Description: CELENAEN SILVANAE METABOLIC PANEL: 0908:[id number] OrderCompl eted COMP: BLOOD SUGAR 15:33:00 75 mg/dL 70-106 OrderComplet ed Performed by:[facility] (ML) (ML) COMP: BLOOD UREA NITROGEN 15:33:00 11 mg/dL 9-23 OrderComplet ed Performed by:[facility] (ML) (ML) COMP: CALCIUM 15:33:00 9.2 mg/dL 8.5-10.1 OrderComplet ed Performed by:[facility] (ML) (ML) CREATININE 15:33:00 0.76 mg/dL 0.55-1.30 OrderComplet ed Performed by:[facility] (ML) (ML) GLOMERULAR FILTRATION RATE EST 15:35:00 Not Done >60 OrderComplet ed PATIENT LESS THAN 19 YEARS OLDUnits - ml/min/1.73 msq For population multiply the GFR result by1.210 for actual result. Serum Creatinine and GFR Estimation traceable to IDMS.Performed by:[facility] (ML) (ML) ALBUMIN 7 15:33:00 4.4 g/dL 3.4-5.0 OrderComplet ed Performed by:[facility] (ML) (ML) TOTAL PROTEIN 7 15:33:00 7.6 g/dL 6.4-8.2 OrderComplet ed Performed by:[facility] (ML) (ML) ALKALINE PHOSPHATAS E 7 15:33:00 82 IU/L 52-200 OrderComplet ed Performed by:[facility] (ML) (ML) AST 7 15:33:00 23 U/L 15-37 OrderComplet ed Performed by:[facility] (ML) (ML) ALT 7 15:33:00 42 U/L 12-78 OrderComplet ed Performed by:[facility] (ML) (ML) TOTAL BILIRUBIN 7 15:33:00 0.8 mg/dL 0.2-1.0 OrderComplet ed Performed by:[facility] (ML) (ML) SODIUM 7 15:33:00 141 mmol/L 136-145 OrderComplet ed Performed by:[facility] (ML) (ML) POTASSIUM 7 15:33:00 4.0 mmol/L 3.5-5.1 OrderComplet ed Performed by:[facility] (ML) (ML) CHLORIDE 7 15:33:00 104 mmol/L 98-107 OrderComplet ed Performed by:[facility] (ML) (ML) CARBON DIOXIDE 7 15:33:00 26 mmol/L 21-32 OrderComplet ed Performed by:[facility] (ML) (ML) ANION GAP 7 15:33:00 11 mmol/L 3-11 OrderComplet ed Performed by:[facility] (ML) (ML) Panel Description: LIPID PANEL: 0908:[id number] OrderCompl eted JEANMARIE: CHOLESTERO L 7 15:33:00 130 mg/dL -199 OrderComplet ed REFERENCE RANGE LESS THAN 200 mg/dL UTDAPWAYXA081- 240 mg/dL BORDERLINE HIGHGREATER THAN 240 mg/dL HIGHPerformed by:Main [facility] (ML) (ML) JEANMARIE: TRIGLYCERI DE 15:33:00 45 mg/dL -149 OrderComplet ed REFERENCE RANGE <150 mg/dL Zonivw858-787 mg/dL Borderline Gayl819-247 mg/dL High >=500 mg/dL Very HighPerformed by:Main [facility] (ML) (ML) JEANMARIE: HIGH DENSITY LIPIDS 15:33:00 45 mg/dL 40-59 OrderComplet ed REFERENCE RANGE LESS THAN 40 MG/DL LOWGREATER THAN OR EQUAL TO 60 MG/DL HIGHPerformed by:[facility] (ML) (ML) JEANMARIE: LOW DENSITY LIPIDS CALCULATED 15:33:00 76 mg/dL 1-99 OrderComplet ed REFERENCE RANGE LESS THAN 100 MG/DL AHNVPGS794-97 9 MG/DL NEAR/ABOVE SGSVPBF823-449 MG/DL BORDERLINE WLJJ490-030 MG/DL HIGHGREATER THAN OR EQUAL TO 190 MG/DL VERY HIGHPerformed by:Main [facility] (ML) (ML) JEANMARIE: CHOL/HDL RATIO 15:33:00 2.9 OrderComplet ed Performed by:[facility] (ML) (ML) Panel Description: TSH: 0908:[id number] O rderCompl eted TSH 15:33:00 0.671 uIU/mL 0.463-3.98 OrderComplet ed Performed by:[facility] (ML) () Panel Description: HGB A1C: 0908:[id number] OrderCompl eted HGB A1C: HGB A1C 16:04:00 5.2 % < 5.7 OrderComplet ed Normal range: < 5.7%Increased risk for Diabetes: 5.7%-6.4%Diabe liliana: > or = 6.5%Diabetic Therapeutic Goal: < 7.0%Reevaluate Therapy: > 8.0% Reference range is from guidelines of the 2010 ADA([place] Diabetes Association).P erformed by:[facility]) HGB A1C: EST AVERAGE GLUCOSE Sep-08-201 7 16:04:00 103 mg/dL OrderComplet ed Performed by:[facility] ([facility]) Panel Description: HIV 1/2 COMBO: 0908:C [id number] OrderCompl eted HIV 1/2 COMBO 7 16:20:00 NON-REACTIVE NON-REACTIVE OrderComplet ed Negative for HIV-1 & HIV-2 antibodies and p24 Antigen NEW HIV TEST 4TH GENERATION IN USE Oct,Performed by:[facility] (ML) (ML) Panel Description: RPR: [id number] O rderCompl eted RPR 08:28:00 NONREACTIVE NONREACTIVE OrderComplet ed Performed by:[facility] (ML) (ML) Panel Description: GENPROBE APTIMA GC/CH HILARIO: 0908:[id number] OrderCompl eted GENPROBE APTIMA: GENPROBE APTIMA CHLAMYDIA 7 14:28:00 Negative NEGATIVE OrderComplet ed Performed by:[facility] (ML) (ML) GENPROBE APTIMA: GENPROBE APTIMA GC 7 14:28:00 Negative NEGATIVE OrderComplet ed Performed by:[facility] (ML) (ML) Panel Description: HEP C ANTIBODY: 0908: [id number] OrderCompl eted HEP C ANTIBODY 14:31:00 NON-REACTIVE NON-REACT OrderComplet ed Performed by:[facility] (ML) (ML) Advance Directives Directive Yes / No Effective Date File Name No Information Encounters Encounter Description Practice Location Reason(s) For Visit Diagnoses Date Provider Providers Copied on Encounter PREV VISIT, NEW, AGE 18-39 David Burrell [facility], [address] [place] [address],[address], [place], [place], [id number], [place] tel:[phone] [facility] preventive exam (chief complaint) Encntr for general adult medical exam w/o abnormal findings 7 No Information Family History Family Member Type Diagnosis Age At Onset Problem (finding) No family hist ory of Cancer, prostate Maternal grandfather Problem (finding) diabetes mellit us type 2 Problem (finding) No family hist ory of High cholesterol Problem (finding) No family history of Hy pertension Problem (finding) No family hist ory of Cancer, colon Problem (finding) No family hist ory of Cancer, testicular Payers Payer name Insurance type Covered libertarian ID Marilyn miranda(s) [facility] [id number] Social History Type Description Quantity Date Captured Comments Alcohol Use Details 750ml weekly Caffeine Use Details coffee sometimes per day 017 Tobacco Use Status No Information Smoking Status Never smoker Non-Smoking Tobacco Use Details : No Details Available : No Details Available Sex Male Vital Signs Date / Time: Height Weight BMI Pulse Rate Blood Pressure Temperature Respiratory Rate Body Surface Area Head Circumference Head Circ. Percentile Wt./Gus. Percentile BMI percentile Pulse Ox Inhaled Ox 10:15 AM 63.48 in 45.904 kg (101.20 lbs) 17.6 5 kg/m eter (2) 62 /min 112/75 mm[Hg] 98.20 F 1 Chief Complaint And Reason For Visit From encounter dated '06/17/2017 10:20'. preventive exam (chief complaint). Description: Men's preventive visit. Patient Health Questionnaire (PHQ-2) is negative. Patient is on a healthy diet. Marital status: single. Concern(s)/Requests Detail: low weight - pt concerned about losing weight. was 98lbs, then 94lbs and now to 102lbs Reason For Referral Reason For Referral No Information Plan Of Treatment Date Type Action Status Goal Unhealthy drug use screening . Due on due Goal Document SOGI Information. D ue on due Goal Fluoride varnish application . Due on due Goal Hearing screen (10-21 yr). D ue on due Goal Flouride Varnish. Due on Jun due Goal Influenza vaccine. Due on due Goal APE. Due on due Goal Tdap. Due on due Goal HPV (1st). Due on 7 due History Of Present Illness Encounter Date Complaint History Of Prese nt Illness preventive exam Men's preventive visit. Patient Health Questionnaire (PHQ-2) is negative. Patient is on a healthy diet. Marital status: single. Concern(s)/Requests Detail: low weight - pt concerned about losing weight. was 98lbs, then 94lbs and now to 102lbs Functional Status Date Functional Assessmen t No Information Instructions Date Instruction Additional Infor mation No Information Assessments Type Assessment Date assessment Encntr for general adult medical exam w/o abnormal findings Mental Status Date Cognitive Assessment Orientation - [place] ed to time, place, person, situation. Patient Care Teams Name Effective Dates (start - stop) Status Members No Information
--- NOTE | ~2025-08-17 | XR_ITS ---
CLINICAL HISTORY: sternal chest pain 2 view chest x-ray Comparison: 06/29/2024 Findings: The lungs are clear. Normal size heart. No acute fracture. IMPRESSION: 1. No acute findings. This document has been electronically signed by: Alan Molina MD on 08/17/2025 04:07:05
--- NOTE | ~2025-08-17 | XR_ITS ---
CLINICAL HISTORY: pain, injury 3 view right shoulder Comparison: None provided Findings: No fractures or dislocations. No significant arthritic change. No erosions. No radiopaque foreign body. IMPRESSION: 1. No acute findings This document has been electronically signed by: Alan Molina MD on 08/17/2025 04:06:36
[2025-08-17 01:49] VITALS: BP 121/79; PULSE 73; RESP 16; TEMP 36.4; O2SAT 96; BMI 27.6
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
--- OUTSIDE RECORDS SUMMARY | 2025-08-17 02:29 | XMS_ITS | Data Portability ---
Author Organization [facility], [address] Address [address] [place] [address] Assessment No assessment recorded. Plan of Treatment Reminders Order Date Submit Date Provider Last Modified By Organization Details Last Modified Time Details Appointments None record ed. Lab None record ed. Referral None record ed. Procedures None record ed. Surgeries None record ed. Imaging None record ed. Medication Orders None record ed. Patient TargetsNo targets recorded. Patient InstructionsNo instructions recorded. Reason for Referral None Reported. Procedures Surgical History Date Name Laterality Status Provider Name and Address Organization Details Recorded Time OC-UDS Send Out Template NON DOT completed Susan Sykes [facility] 07/31/2024 13:47:08 Imaging Results None recorded. Procedure Notes None recorded. Medical Equipment None Reported. Medications Name Sig Start Date Stop Date Status Note LastModified by Organization Details LastModified Time prednisone 20 mg tablet TAKE 2 TABLETS EVERY DAY active Not Available Not Available No t Available ibuprofen 400 mg tablet TAKE 1 TABLET BY MOUTH EVERY 8 HOURS NEEDED FOR PAIN active Not Available Not Available No t Available cefuroxime axetil 500 mg tablet TAKE 1 TABLET BY MOUTH TWICE A DAY FOR 7 DAYS active Not Available Not Available No t Available Ventolin HFA 90 mcg/actuatio n aerosol inhaler INHALE 2 PUFFS EVERY 6 HOURS NEEDED FOR SHORTNESS OF BREATH OR WHEEZING active Not Available Not Available Not Available Vitals None Recorded Social History None recorded. Functional Status None recorded. Mental Status None recorded. Family History Nothing Reported. Medical History No medical history recorded. Past Encounters Encounter ID Performer Location Encounter Start Date Encounter Closed Date Diagnosis/Indication Diagnosis SNOMED-CT Code Diagnosis ICD10 Code Diagnosis IMO Codes Diagnosis Note [id number] [place] [address] [facility] [id number] 07/31/2024 13:04:44 07/31/2024 14:47:53 History and physical examination, occupation [id number] Z02.1 Health Concerns Section Related Observation LastModified by Organization Detai ls LastModified Time None Recorded Concern Status LastModified by Organization Details LastModified Time None Recorded Advance Directives Directive None Recorded Payers Insurance Date Sequence Insurance Name Policy Number Policy [place] Covered Member ID Holloway Member ID Guarantor Name 07/31/2024 [employer] V[employer] [facility] Partner 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
[2025-08-17 03:38] VITALS: BP 117/69; PULSE 67; RESP 16; TEMP 36.7; O2SAT 95
[2025-08-17 03:59] VITALS: BP 117/69; PULSE 67; RESP 16; TEMP 36.7; O2SAT 95
== END 2025-08-17 03:59 | disposition home or self-care (01) ==
PROVIDERS: Emergency Provider Emergency Medicine
DX: M25.511 Pain in right shoulder (principal)
CPT/HCPCS: 71046; 73030; 96372; 99284; J1885

== ENCOUNTER → 2025-08-17 02:12 | Outpatient (BNV) | payer MEDICAID, SELFPAY | PROVIDERS: Emergency Provider Emergency Medicine; Visit Provider Specialist | DX: R07.2 Precordial pain (principal); M25.511 Pain in right shoulder | CPT/HCPCS: 71046; 73030 ==

== ENCOUNTER 2025-08-22 01:58 | Emergency (ER) | payer MEDICAID, SELFPAY ==
--- OUTSIDE RECORDS SUMMARY | 2025-03-27 06:15 | XMS_ITS ---
Author Organization [facility] Address [address] [place] [address] Care Team Providers Care Pill Machine Operator Name Role Phone PAUL NELSON Unavailable [phone] REASON FOR VISIT Counseling/Testing Social History Sex Assigned At : Social History Observation Description Sex Assigned At Male Encounters Encounter Location Date Provider Diagnosis [facility] [address] [place], [place] [id number] PAUL NELSON Plan Of Treatment No Information Progress Notes * Hu LANGLEY GDOB: [birth year] (24 yo M)Acc No.[id number]:03/27/2025 Progress Notes Patient: Traci harrisHu Provider: Kenji NELSON :2000 A ge:24 Y S ex:Male Date:03/27/2025 Address:[address] [place], [place] [id number] Subjective: * Chief Complaints: * C ounseling/Testing Billing Information: * Procedure Codes: * Electronic signature of JEANNIE NELSON CNM on 08/22/2025 at 02:21 AM EST Sign off status: Pending * Provider: Kenji NELSON Date: 0 03/27/2025 Generated for Keren cisse/Priyank/Aruna on: 10/22/2024 02:21 AM EST
--- NOTE | ~2025-08-22 | XR_ITS ---
CLINICAL HISTORY: pain 1 view abdomen Comparison: None provided Findings: No pneumoperitoneum or pneumatosis. No abnormal calcifications. No acute fractures. IMPRESSION: The bowel gas pattern is normal This document has been electronically signed by: Barry Coffey MD on 08/22/2025 04:30:11
[2025-08-22 02:04] VITALS: BP 123/70; PULSE 70; RESP 16; TEMP 36.1; O2SAT 98; BMI 26.6
--- OUTSIDE RECORDS SUMMARY | 2025-08-22 02:21 | XMS_ITS | Data Portability ---
Author Organization [facility], [address] Address [address] [place] [address] Assessment No assessment recorded. Plan of Treatment [...] Out Template NON DOT completed Susan Sykes [facility] 07/31/2024 13:47:08 Imaging Results None recorded. [...] ICD10 Code Diagnosis IMO Codes Diagnosis Note [id number] [place] [address] [facility] [id number] 07/31/2024 13:04:44 07/31/2024 14:47:53 History and physical examination, occupation [id number] Z02.1 Health Concerns Section Related Observation LastModified by Organization Detai ls LastModified Time None Recorded Concern Status LastModified by Organization Details LastModified Time None Recorded Advance Directives Directive None Recorded Payers Insurance Date Sequence Insurance Name Policy Number Policy [place] Covered Member ID Holloway Member ID Guarantor Name 07/31/2024 [employer] AC[employer] Fx[employer] Vendor [employer] Internal [employer] Specialist 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
--- OUTSIDE RECORDS SUMMARY | 2025-08-22 02:21 | XMS_ITS | Patient Health Record ---
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 trachomatis, JORGE, Pharyn Negative Negative N. gonorrhoeae, JORGE, Pharyn Negative Negative Ct, Ng, Trich vag by [id number] Reviewed date:04/16/2025 08:46:39 AM Interpretation:Negative Performing Lab:[facility] [place], [address], [address], [place], Phone - [phone], Director - [facility] Notes/Report: Clinical Information:SRC:urine Chlamydia by JORGE Negative Negative Gonococcus by JORGE Negative Negative Trich vag by JORGE Negative Negative HIV Ab/p24 Ag with Reflex-[id number] Reviewed date:04/04/2025 02:49:18 PM Interpretation:Negative Performing Lab:[facility] [place], [address], [address], [place], Phone - [phone], Director - [facility] Notes/Report: Clinical Information:SRC:urine HIV Ab/p24 Ag Screen Non Reactive Non Reactive HIV-1/HIV-2 antibodies and HIV-1 p24 antigen were NOT detected. There is no laboratory evidence of HIV infection. HIV Negative T pallidum Screening [place] -[id number] Reviewed date:04/04/2025 02:49:27 PM Interpretation:Negative Performing Lab:[facility], [address], [address], [place], Phone - [phone], Director - [facility] Notes/Report: Clinical Information:SRC:urine T pallidum Antibodies Non Reactive Non Reactive Interpretation: Syphilis: Treponemal Antibodies with Reflex to RPR and RPR Titer, Reverse Screening and Diagnosis Algorithm ---- Treponemal Treponemal Ab RPR, Qn Ab, TPPA [...] detected. Consistent with current or past syphilis. Reason For Referral No Information Social History [...] 04/03/2025 Encounters Encounter Location Date Provider Diagnosis [address] [id number] 04/03/2025 PAUL NELSON Encounter for scre ening for infections with a predominantly sexual mode of transmission Z11.3 ; Counseling, unspecified Z71.9 ; Other problems related to lifestyle Z72.89 and HIV Screening Z11.4 Assessments Encounter Date Diagnosis (ICD Code) Assessment Notes Treatment Notes Treatment Clinical Notes Section Notes 04/03/2025 Encounter for screening for infections with [...] Insured Coverage Start Date Coverage End Date [place] [address] [place] [id number] Hu Langley Self - patient is the insured Medical (General) History Medical History History ICD Code Asthma
[2025-08-22 02:38] VITALS: BP 127/81; PULSE 80; RESP 16; TEMP 36.6; O2SAT 96
--- NOTE | 2025-08-22 03:56 | ED.GENADULT ---
HPI - General Adult General Chief complaint: General Medical Stated complaint: something came out of belly button Time Seen by Provider: 08/22/25 02:11 Source: patient Limitations: no limitations History of Present Illness ED Provider: Katie Munoz PA-C HPI narrative: 24-year-old male who is otherwise healthy, presents with concern for umbilicus infection. Patient states he was driving in his car, he noted a foul smell in the car. He states he looked everywhere in the vehicle, however he could not identify a source. He then noticed he thought his shirt smelled in adjacent to his belly button. Patient states he removed a large piece of foul smelling debris. He is worried he has an infection. Patient states his abdomen is bloated, denies inability to pass flatus, constipation or nausea vomiting. Related Data Previous Rx's ?Medication ?Instructions ?Recorded cetirizine 10 mg capsule (Zyrtec) 10 mg PO DAILY #30 caps 02/05/21 ibuprofen 600 mg tablet 600 mg PO Q6H PRN fever or pain 12/30/24 #30 tabs acetaminophen 500 mg capsule 1,000 mg (2 x 500 mg) PO Q8H PRN 08/17/25 fever or pain #14 caps ibuprofen 400 mg tablet 400 mg PO Q6H PRN pain #14 tabs 08/17/25 Allergies Allergy/AdvReac Type Severity Reaction Status Date / Time shrimp Allergy Anaphylaxis Verified 08/22/25 02:06 Review of Systems Review of Systems: Yes all other systems are reviewed and are negative Constitutional: Constitutional: Denies fatigue and Denies fever(s) Gastrointestinal: Gastrointestinal: Denies abdominal pain, Reports bloating, Denies constipation, Denies nausea and Denies vomiting Endocrine: Endocrine: Denies fatigue [facility] Past Medical History Attestation statement: The following information was validated with the patient. Medical History Asthma Social History Social History Alcohol intake: never Smoked in Last 30 Days: No Use of substances other than those prescribed or required for medical reasons: No Advance Directives: No Advance Directives Information Provided: Yes Do you have a plan to hurt others: No Plan Physical Exam ED Vital Signs: Vital Signs - 24 hr 08/22/25 02:04 08/22/25 02:38 Temperature 97.0 F 98 F Pulse Rate 70 80 Respiratory Rate 16 16 Blood Pressure 123/70 127/81 Pulse Oximetry 98 96 Oxygen Delivery Method Room Air Room Air BMI result Body Mass Index 26.6 Const Other: Alert Orientation/consciousness: patient oriented x3 Resp Effort & Inspection: normal respiratory effort Cardio Other: Normal peripheral perfusion GI Other: Abdomen is soft, subtly distended, nontender no guarding, there was no erythema warmth or purulence from the umbilicus, there was a large piece of foul smelling debris that was dislodged from the umbilicus by the patient Skin Other: Warm dry no rash Neuro General: patient oriented x3, gait normal, no focal motor deficits and CN's II-XI intact bilaterally Psych Other: Cooperative Medical Decision Making Medical Decision Making MDM Narrative: 24-year-old male who is otherwise healthy, presents with concern for umbilicus infection. Patient states he was driving in his car, he noted a foul smell in the car. He states he looked everywhere in the vehicle, however he could not identify a source. He then noticed he thought his shirt smelled in adjacent to his belly button. Patient states he removed a large piece of foul smelling debris. He is worried he has an infection. Patient states his abdomen is bloated, denies inability to pass flatus, constipation or nausea vomiting. No chronic issues History: Per patient I have considered the following differential diagnoses: Cellulitis, purulent cellulitis, cyst, intra-abdominal abscess, skin serum, constipation, bowel obstruction Plan: The patient had a collection of skin cells in his umbilicus, the area was cleaned, there was no cellulitis there was no purulent drainage. I am taking the patient is likely constipated giving the bloating of his abdomen, he has no obstructive symptoms, obtaining a KUB. He is very reassured. No indication for labs at this time. I have independently reviewed the following tests: KUB:Findings: No pneumoperitoneum or pneumatosis. No abnormal calcifications. No acute fractures. IMPRESSION: The bowel gas pattern is normal Differential Diagnosis Differential Diagnoses: The differential diagnosis associated with the presentation includes See MDM Admission/Observation Consideration of admission/observation: Escalation of care including admission/observation considered Not applicable Radiology Impression Discussion of test interpretation with radiology: I have reviewed the radiologist's reading. Discharge Plan Discharge Clinical Impression: Waxy skin Patient Disposition: Home, Self-Care Additional Instructions: You had waxy skin debris, essentially a collection of skin cells, in your belly button, just be sure to clean the belly button with soap and water when you shower, this will prevent the accumulation of the skin cells. Overall, the x-ray of your abdomen was completely normal, you do have some retained stool. You should use [id number] Colace, this is a stool softener, 1 to 2 times a day. Also with [id number] MiraLax, 1 to 2 times a day, until you begin having more bowel movements. Follow up with your primary care provider as needed. Prescriptions: No Action Zyrtec 10 mg capsule 10 mg PO DAILY Qty: 30 0RF ibuprofen 600 mg tablet 600 mg PO Q6H PRN (Reason: fever or pain) Qty: 30 0RF ibuprofen 400 mg tablet 400 mg PO Q6H PRN (Reason: pain) Qty: 14 0RF acetaminophen 500 mg capsule 1,000 mg PO Q8H PRN (Reason: fever or pain) Qty: 14 0RF Stand Alone Forms: Work/School Release Print Language: Tristanian
[2025-08-22 05:02] VITALS: BP 125/83; PULSE 85; RESP 18; TEMP 36.7; O2SAT 95
== END 2025-08-22 05:06 | disposition home or self-care (01) ==
PROVIDERS: Emergency Provider Emergency Medicine
DX: R14.0 Abdominal distension (gaseous) (principal); K59.00 Constipation, unspecified; R11.2 Nausea with vomiting, unspecified
CPT/HCPCS: 74018; 99284

== ENCOUNTER → 2025-08-22 03:17 | Outpatient (BNV) | payer MEDICAID, SELFPAY | PROVIDERS: Emergency Provider Emergency Medicine; Visit Provider Radiology Diagnostic Radiology | DX: R10.9 Unspecified abdominal pain (principal) | CPT/HCPCS: 74018 ==